=== PATIENT | male | born 1970 | race African-American/Black ===

== ENCOUNTER 2021-01-23 16:34 | Inpatient (IN) | payer MEDICAID ==
[~2021-01-23] VITALS: Ht 177.8 cm; Wt 192.3 kg
[2021-01-23 17:21] LABS: HEMATOCRIT. 35.2 % (42.0-52.0); MEAN CORPUSCULAR HEMOGLOBIN 29.8 pg (28.0-32.0); MEAN CORPUSCULAR VOLUME 87.4 fL (80.0-94.0); MEAN PLATELET VOLUME 8.7 fl (7.4-10.4); PLATELET 242 x1000/uL (130-400); RED BLOOD CELL COUNT 4.02 mill/uL (4.7-6.1); RED CELL DISTRIBUTION WIDTH 16.8 % (11.6-14.6)
[2021-01-23 17:24] LABS: CHLORIDE 110 mEq/L (98-107)
[2021-01-23 17:27] LABS: INR 1.2; PROTHROMBIN TIME 12.5 sec (9.6-11.0)
[2021-01-23 17:28] LABS: ETHANOL BLOOD < 10 mg/dL
[2021-01-23 17:32] LABS: CREATINE KINASE 131 IU/L (39-308)
[2021-01-23] MEDS ORDERED: PIPERACILLIN/TAZ 3.375G PREMIX 50 ML IV ONE (18:15)
[2021-01-23] MEDS ORDERED: PIPERACILLIN/TAZOBACTAM 3.375GM/50ML PREMIX IV ONE (18:15)
[2021-01-23] MEDS ORDERED: VANCOMYCIN 1 G PREMIX 200 ML IV NR (18:45)
[2021-01-23 18:52] LABS: PLATELET ESTIMATE NORMAL
[2021-01-23] MEDS ORDERED: ONDANSETRON HCL 4MG/2ML INJ IV PRN (19:30)
[2021-01-23] MEDS ORDERED: POTASSIUM CHLORIDE 20MEQ TABLET SR PO ONE (20:00)
[2021-01-23] MEDS ORDERED: POTASSIUM CHLORIDE INJ 40 MEQ in DEXT 5% WATER 250 ML IV ONE (21:00)
[2021-01-23] MEDS: SODIUM CHLORIDE 0.9% 1,000 ML IV SCH (23:37)
[2021-01-23] MEDS: ENOXAPARIN 40MG/0.4ML SYR SUBCUT SCH (23:38)
[2021-01-24] MEDS ORDERED: VANCOMYCIN 1 G PREMIX 200 ML IV SCH
[2021-01-24] MEDS ORDERED: DEXTROSE 50% WATER 50ML SYRINGE IV PRN (01:15)
[2021-01-24] MEDS: ACETAMINOPHEN 325MG TABLET PO PRN ×2 (01:56→12:15)
[2021-01-24 02:00] VITALS: BP_SYST 113; BP_SYST 118; BP_DIAS 44; BP_DIAS 66
[2021-01-24] MEDS ORDERED: ONDANSETRON HCL 4MG/2ML INJ IV PRN (02:30)
[2021-01-24 04:00] VITALS: BP 115/59
[2021-01-24] MEDS: SODIUM CHLORIDE 0.9% 1,000 ML IV SCH ×2 (04:50→10:46)
[2021-01-24] MEDS ORDERED: RIVA20TA PO (05:04)
[2021-01-24] MEDS ORDERED: BENA20TA10 PO (05:04)
[2021-01-24] MEDS ORDERED: GABA-532 PO (05:04)
[2021-01-24] MEDS ORDERED: ATOR40TA70 PO (05:04)
[2021-01-24] MEDS ORDERED: ASPI-1160 PO (05:04)
[2021-01-24] MEDS ORDERED: COLL30OI TP (05:04)
[2021-01-24] MEDS ORDERED: METO100T16 PO (05:04)
[2021-01-24] MEDS ORDERED: FURO40TA5 PO (05:04)
[2021-01-24 05:37] VITALS: BP 115/59
[2021-01-24] MEDS: PIPERACILLIN/TAZOBACTAM 3.375 G in DEXTROSE 5% WATER 50 ML IV SCH ×3 (06:29→22:49)
[2021-01-24] MEDS: INSULIN LISPRO 100 UNITS/ML SUBCUT SCH ×4 (06:30→21:27)
[2021-01-24] MEDS: BLOOD SUGAR DIAGNOSTIC STRIP TEST SCH ×4 (06:30→21:23)
[2021-01-24 08:02] LABS: HEMOGLOBIN. 13.7 g/dL (14.0-18.0); MEAN CORPUSCULAR HEMOGLOBIN 29.5 pg (28.0-32.0); MEAN CORPUSCULAR VOLUME 90.2 fL (80.0-94.0); MEAN PLATELET VOLUME 9.6 fl (7.4-10.4); PLATELET 209 x1000/uL (130-400); RED BLOOD CELL COUNT 4.66 mill/uL (4.7-6.1); RED CELL DISTRIBUTION WIDTH 17.3 % (11.6-14.6)
[2021-01-24 08:39] LABS: CHLORIDE 106 mEq/L (98-107)
[2021-01-24 08:51] LABS: PHOSPHORUS 3.2 mg/dL (2.5-4.9)
[2021-01-24] MEDS: ENOXAPARIN 40MG/0.4ML SYR SUBCUT SCH ×2 (09:16→21:29)
[2021-01-24] MEDS ORDERED: VANCOMYCIN 1250MG in DEXTROSE 5% WATER 250ML IV SCH (12:00)
[2021-01-24 13:55] LABS: PLATELET ESTIMATE NORMAL
[2021-01-24] MEDS ORDERED: MAGNESIUM 2 G PREMIX 50 ML IV NR (14:30)
[2021-01-24 14:56] LABS: BG BASE EXCESS -9.7 mmol/L (-2.0-2.0); BG CARBOXYHEMOGLOBIN 0.8 % (0.5-1.5); BG DEOXYHEMOGLOBIN 1.1 % (0.0-5.0); BG FRACTION INSPIRED OXYGEN 30; BG HCO3 ACT 13.9 mmol/L (22.0-26.0); BG METHEMOGLOBIN 0.1 % (0.0-1.5); BG OXYGEN SATURATION 98.9 % (92.0-98.5); BG PCO2 25.3 mmHg (35.0-45.0); BG PH 7.357 (7.350-7.450); BG PO2 152.1 mmHg (75.0-100.0); BG SAMPLE SITE RIGHT RADIAL; BG TOTAL HEMOGLOBIN 14.1 g/dL (12.0-18.0); BG VENT MODE MASK - CPAP
[2021-01-24] MEDS ORDERED: VANCOMYCIN 1500MG in DEXTROSE 5% WATER 250ML IV SCH (18:00)
[2021-01-24 20:00] VITALS: BP 113/56
[2021-01-24] MEDS ORDERED: NALOXONE HCL 0.4MG/ML VIAL IV PRN (20:15)
[2021-01-24] MEDS: HYDROCODONE/ACETAMINOPHEN 5/325MG TABLET PO PRN (20:23)
[2021-01-25] VITALS: BP 112/46
[2021-01-25] MEDS: ACETAMINOPHEN 325MG TABLET PO PRN (00:21)
[2021-01-25 04:00] VITALS: BP 101/42
[2021-01-25] MEDS: HYDROCODONE/ACETAMINOPHEN 5/325MG TABLET PO PRN ×2 (04:27→21:44)
[2021-01-25] MEDS: PIPERACILLIN/TAZOBACTAM 3.375 G in DEXTROSE 5% WATER 50 ML IV SCH ×3 (05:37→21:39)
[2021-01-25] MEDS: BLOOD SUGAR DIAGNOSTIC STRIP TEST SCH ×4 (05:51→21:39)
[2021-01-25 06:13] LABS: CHLORIDE 105 mEq/L (98-107)
[2021-01-25 06:15] LABS: HEMATOCRIT. 36.3 % (42.0-52.0); MEAN CORPUSCULAR HEMOGLOBIN 29.5 pg (28.0-32.0); MEAN CORPUSCULAR VOLUME 89.1 fL (80.0-94.0); MEAN PLATELET VOLUME 9.1 fl (7.4-10.4); PLATELET 194 x1000/uL (130-400); RED BLOOD CELL COUNT 4.08 mill/uL (4.7-6.1); RED CELL DISTRIBUTION WIDTH 16.9 % (11.6-14.6)
[2021-01-25 06:19] LABS: PHOSPHORUS 5.1 mg/dL (2.5-4.9)
[2021-01-25] MEDS: INSULIN LISPRO 100 UNITS/ML SUBCUT SCH ×4 (06:24→21:44)
[2021-01-25] MEDS: ENOXAPARIN 40MG/0.4ML SYR SUBCUT SCH ×2 (10:40→21:43)
[2021-01-25 12:40] LABS: CLARITY URINE TURBID (CLEAR); COLOR URINE DARK YELLOW (YELLOW); KETONES URINE TRACE (NEGATIVE); LEUKOCYTE ESTERASE URINE TRACE (NEGATIVE); NITRITE URINE NEGATIVE (NEGATIVE); OCCULT BLOOD URINE NEGATIVE (NEGATIVE); PROTEIN URINE 1+ (NEGATIVE); SPECIFIC GRAVITY URINE 1.023 (1.005-1.030); UROBILINOGEN URINE 0.2 E.U./dL (0.2-1.0)
[2021-01-25 14:16] LABS: PLATELET ESTIMATE NORMAL
[2021-01-25 20:00] VITALS: BP 111/43
[2021-01-25] MEDS: METRONIDAZOLE 500 MG PREMIX 100 ML IV SCH (21:30)
[2021-01-26] VITALS (7 sets, daily range): BP systolic 91–114; BP diastolic 41–68
[2021-01-26] MEDS: PIPERACILLIN/TAZOBACTAM 3.375 G in DEXTROSE 5% WATER 50 ML IV SCH ×3 (05:12→22:52)
[2021-01-26] MEDS: METRONIDAZOLE 500 MG PREMIX 100 ML IV SCH ×3 (05:12→22:52)
[2021-01-26 05:50] LABS: HEMATOCRIT. 37.5 % (42.0-52.0); HEMOGLOBIN. 12.3 g/dL (14.0-18.0); MEAN CORPUSCULAR HEMOGLOBIN 29.2 pg (28.0-32.0); MEAN CORPUSCULAR VOLUME 89.1 fL (80.0-94.0); MEAN PLATELET VOLUME 9.1 fl (7.4-10.4); PLATELET 164 x1000/uL (130-400); RED BLOOD CELL COUNT 4.21 mill/uL (4.7-6.1); RED CELL DISTRIBUTION WIDTH 17.2 % (11.6-14.6)
[2021-01-26 05:56] LABS: CHLORIDE 102 mEq/L (98-107)
[2021-01-26 06:01] LABS: PHOSPHORUS 5.4 mg/dL (2.5-4.9)
[2021-01-26] MEDS: BLOOD SUGAR DIAGNOSTIC STRIP TEST SCH ×4 (06:28→21:00)
[2021-01-26] MEDS: INSULIN LISPRO 100 UNITS/ML SUBCUT SCH ×4 (06:31→22:51)
[2021-01-26] MEDS: HYDROCODONE/ACETAMINOPHEN 5/325MG TABLET PO PRN ×2 (06:38→22:41)
[2021-01-26] MEDS: ENOXAPARIN 40MG/0.4ML SYR SUBCUT SCH (08:52)
[2021-01-26] MEDS ORDERED: VANCOMYCIN 1 G PREMIX 200 ML IV NR (12:00)
[2021-01-26] MEDS ORDERED: NA PHOS,M-B/NA PHOS,DI-BA ENEMA 118ML PR NR (18:30)
[2021-01-26] MEDS: SODIUM BICARBONATE 150 MEQ in DEXTROSE 5% WATER 1,000 ML IV SCH (18:50)
[2021-01-26] MEDS ORDERED: NA PHOS,M-B/NA PHOS,DI-BA ENEMA 118ML PR SCH (19:00)
[2021-01-26] MEDS: ACETAMINOPHEN 325MG TABLET PO PRN (22:53)
[2021-01-26 23:32] LABS: PLATELET ESTIMATE NORMAL
[2021-01-27] VITALS: BP 96/39
[2021-01-27 04:00] VITALS: BP 99/48
[2021-01-27] MEDS: PIPERACILLIN/TAZOBACTAM 3.375 G in DEXTROSE 5% WATER 50 ML IV SCH ×3 (06:06→22:18)
[2021-01-27] MEDS: METRONIDAZOLE 500 MG PREMIX 100 ML IV SCH ×3 (06:06→22:18)
[2021-01-27] MEDS: BLOOD SUGAR DIAGNOSTIC STRIP TEST SCH ×4 (06:06→21:00)
[2021-01-27] MEDS: INSULIN LISPRO 100 UNITS/ML SUBCUT SCH ×4 (06:08→22:53)
[2021-01-27 08:00] VITALS: BP 110/63
[2021-01-27] MEDS ORDERED: NA PHOS,M-B/NA PHOS,DI-BA ENEMA 118ML PR SCH ×2 (08:00→08:30)
[2021-01-27 08:03] LABS: PROTHROMBIN TIME 10.3 sec (9.6-11.0)
[2021-01-27] MEDS: ENOXAPARIN 40MG/0.4ML SYR SUBCUT SCH (08:16)
[2021-01-27 08:27] LABS: HEMATOCRIT. 34.7 % (42.0-52.0); HEMOGLOBIN. 11.5 g/dL (14.0-18.0); MEAN CORPUSCULAR VOLUME 87.3 fL (80.0-94.0); MEAN PLATELET VOLUME 9.6 fl (7.4-10.4); PLATELET 141 x1000/uL (130-400); RED BLOOD CELL COUNT 3.98 mill/uL (4.7-6.1); RED CELL DISTRIBUTION WIDTH 17.4 % (11.6-14.6)
[2021-01-27 08:28] LABS: CHLORIDE 104 mEq/L (98-107)
[2021-01-27 08:40] LABS: PHOSPHORUS 5.6 mg/dL (2.5-4.9)
[2021-01-27 10:35] LABS: BG BASE EXCESS -8.4 mmol/L (-2.0-2.0); BG CARBOXYHEMOGLOBIN 0.7 % (0.5-1.5); BG DEOXYHEMOGLOBIN 2.9 % (0.0-5.0); BG FRACTION INSPIRED OXYGEN 28; BG HCO3 ACT 16.7 mmol/L (22.0-26.0); BG METHEMOGLOBIN 0.4 % (0.0-1.5); BG OXYGEN SATURATION 97.1 % (92.0-98.5); BG PCO2 33.4 mmHg (35.0-45.0); BG PH 7.316 (7.350-7.450); BG PO2 91.6 mmHg (75.0-100.0); BG SAMPLE SITE RIGHT RADIAL; BG TOTAL HEMOGLOBIN 13.5 g/dL (12.0-18.0); BG VENT MODE NASAL CANNULA
[2021-01-27 12:00] VITALS: BP 114/72
[2021-01-27] MEDS ORDERED: FENTANYL CITRATE/PF 50MCG/ML 2ML VIAL IV PRN (12:08)
[2021-01-27] MEDS ORDERED: MIDAZOLAM HCL 5 MG/5 ML VIAL IV PRN (12:09)
[2021-01-27] MEDS ORDERED: FENTANYL CITRATE/PF 50MCG/ML 2ML VIAL ONE (12:13)
[2021-01-27] MEDS ORDERED: MIDAZOLAM HCL 5 MG/5 ML VIAL ONE (12:13)
[2021-01-27 14:11] LABS: MICROALBUMIN RANDOM URINE 111.9 ug/mL (Not Estab.)
[2021-01-27 14:38] LABS: HEMATOCRIT. 35.9 % (42.0-52.0); MEAN CORPUSCULAR HEMOGLOBIN 29.2 pg (28.0-32.0); MEAN PLATELET VOLUME 9.5 fl (7.4-10.4); PLATELET 141 x1000/uL (130-400); RED BLOOD CELL COUNT 4.13 mill/uL (4.7-6.1); RED CELL DISTRIBUTION WIDTH 17.6 % (11.6-14.6)
[2021-01-27 14:52] LABS: CHLORIDE 104 mEq/L (98-107)
[2021-01-27 16:00] VITALS: BP 112/65
[2021-01-27] MEDS: HYDROCODONE/ACETAMINOPHEN 5/325MG TABLET PO PRN (16:55)
[2021-01-27] MEDS: SODIUM BICARBONATE 150 MEQ in DEXTROSE 5% WATER 1,000 ML IV SCH (17:28)
[2021-01-27 20:00] VITALS: BP 103/58
[2021-01-27] MEDS ORDERED: METOPROLOL TARTRATE 5MG/5ML VIAL IV NR (21:45)
[2021-01-28] VITALS (7 sets, daily range): BP systolic 96–115; BP diastolic 48–59
[2021-01-28 03:35] LABS: PLATELET ESTIMATE NORMAL
[2021-01-28] MEDS: METOPROLOL TARTRATE 50MG TABLET PO SCH ×2 (03:44→20:32)
[2021-01-28 03:49] LABS: PLATELET ESTIMATE NORMAL
[2021-01-28] MEDS: PIPERACILLIN/TAZOBACTAM 3.375 G in DEXTROSE 5% WATER 50 ML IV SCH ×3 (05:29→20:51)
[2021-01-28] MEDS: METRONIDAZOLE 500 MG PREMIX 100 ML IV SCH ×3 (05:29→20:50)
[2021-01-28] MEDS: INSULIN LISPRO 100 UNITS/ML SUBCUT SCH ×4 (06:02→21:18)
[2021-01-28] MEDS: BLOOD SUGAR DIAGNOSTIC STRIP TEST SCH ×4 (06:12→20:51)
[2021-01-28 07:07] LABS: A/G RATIO 0.5 (0.7-1.7); ALBUMIN 2.3 g/dL (2.9-4.4); ALPHA-1-GLOBULIN 0.3 g/dL (0.0-0.4); ALPHA-2-GLOBULIN 0.7 g/dL (0.4-1.0); BETA GLOBULIN 0.7 g/dL (0.7-1.3); GAMMA GLOBULINS 2.4 g/dL (0.4-1.8); GLOBULIN TOTAL 4.2 g/dL (2.2-3.9); M-SPIKE Not Observed g/dL (Not Observed); TOTAL PROTEIN SERUM 6.5 g/dL (6.0-8.5)
[2021-01-28 07:45] LABS: HEMATOCRIT. 34.9 % (42.0-52.0); HEMOGLOBIN. 11.7 g/dL (14.0-18.0); MEAN CORPUSCULAR VOLUME 86.1 fL (80.0-94.0); MEAN PLATELET VOLUME 9.8 fl (7.4-10.4); PLATELET 126 x1000/uL (130-400); RED BLOOD CELL COUNT 4.05 mill/uL (4.7-6.1); RED CELL DISTRIBUTION WIDTH 17.5 % (11.6-14.6)
[2021-01-28 08:01] LABS: CHLORIDE 101 mEq/L (98-107)
[2021-01-28 08:11] LABS: PHOSPHORUS 6.6 mg/dL (2.5-4.9)
[2021-01-28] MEDS: ENOXAPARIN 40MG/0.4ML SYR SUBCUT SCH (08:29)
[2021-01-28] MEDS ORDERED: SODIUM CHLORIDE 0.9% 1,000 ML IV ONE (12:15)
[2021-01-28 12:54] LABS: BG BASE EXCESS -7.7 mmol/L (-2.0-2.0); BG CARBOXYHEMOGLOBIN 0.2 % (0.5-1.5); BG DEOXYHEMOGLOBIN 1.4 % (0.0-5.0); BG FRACTION INSPIRED OXYGEN 32; BG HCO3 ACT 17.5 mmol/L (22.0-26.0); BG METHEMOGLOBIN 0.5 % (0.0-1.5); BG OXYGEN SATURATION 98.6 % (92.0-98.5); BG OXYHEMOGLOBIN 97.9 % (94.0-97.0); BG PH 7.318 (7.350-7.450); BG PO2 136.9 mmHg (75.0-100.0); BG SAMPLE SITE LEFT RADIAL; BG VENT MODE NASAL CANNULA
[2021-01-28 15:43] LABS: PLATELET ESTIMATE DECREASED
[2021-01-28] MEDS: SODIUM BICARBONATE 150 MEQ in DEXTROSE 5% WATER 1,000 ML IV SCH (15:58)
[2021-01-28] MEDS: HYDROCODONE/ACETAMINOPHEN 5/325MG TABLET PO PRN (16:10)
[2021-01-28] MEDS: KCL 20MEQ/100ML PREMIX 100 ML IV SCH ×2 (18:06→18:07)
[2021-01-28] MEDS: DIPHENHYDRAMINE 25MG CAPSULE PO PRN (21:01)
[2021-01-28] MEDS ORDERED: CEFTRIAXONE 1 G PREMIX 50 ML IV SCH (21:15)
[2021-01-28] MEDS ORDERED: CEFTRIAXONE 1,000 MG in DEXTROSE 5% WATER 50 ML IV SCH (22:30)
[2021-01-28] MEDS: ACETAMINOPHEN 325MG TABLET PO PRN (23:18)
[2021-01-28 23:56] LABS: PROTHROMBIN TIME 11.1 sec (9.6-11.0)
[2021-01-29 04:00] VITALS: BP 115/55
[2021-01-29] MEDS: HYDROCODONE/ACETAMINOPHEN 5/325MG TABLET PO PRN (06:15)
[2021-01-29] MEDS: BLOOD SUGAR DIAGNOSTIC STRIP TEST SCH ×4 (06:32→21:00)
[2021-01-29] MEDS: INSULIN LISPRO 100 UNITS/ML SUBCUT SCH ×4 (06:36→22:39)
[2021-01-29 07:11] LABS: HEMATOCRIT. 37.5 % (42.0-52.0); HEMOGLOBIN. 12.6 g/dL (14.0-18.0); MEAN CORPUSCULAR VOLUME 86.5 fL (80.0-94.0); MEAN PLATELET VOLUME 9.8 fl (7.4-10.4); PLATELET 156 x1000/uL (130-400); RED BLOOD CELL COUNT 4.34 mill/uL (4.7-6.1); RED CELL DISTRIBUTION WIDTH 17.9 % (11.6-14.6)
[2021-01-29 07:41] LABS: CHLORIDE 101 mEq/L (98-107)
[2021-01-29 08:00] VITALS: BP 106/58
[2021-01-29] MEDS: ENOXAPARIN 40MG/0.4ML SYR SUBCUT SCH (09:31)
[2021-01-29] MEDS: METOPROLOL TARTRATE 50MG TABLET PO SCH ×2 (09:31→21:00)
[2021-01-29] MEDS: KCL 20MEQ/100ML PREMIX 100 ML IV SCH ×2 (11:57→18:10)
[2021-01-29 12:00] VITALS: BP 104/52
[2021-01-29] MEDS ORDERED: CEFTRIAXONE 2 G PREMIX 50 ML IV SCH (14:30)
[2021-01-29 16:00] VITALS: BP 96/48
[2021-01-29 17:07] LABS: PLATELET ESTIMATE NORMAL
[2021-01-29] MEDS: CEFTRIAXONE 2 G in DEXTROSE 5% WATER 50 ML IV SCH (18:10)
[2021-01-29] MEDS: POTASSIUM CHLORIDE 20MEQ TABLET SR PO SCH ×2 (18:19→22:10)
[2021-01-29] MEDS: SODIUM BICARBONATE 150 MEQ in DEXTROSE 5% WATER 1,000 ML IV SCH (18:23)
[2021-01-29 20:00] VITALS: BP 110/60
[2021-01-29] MEDS: DIPHENHYDRAMINE 25MG CAPSULE PO PRN (22:10)
[2021-01-29] MEDS: ACETAMINOPHEN 325MG TABLET PO PRN (23:32)
[2021-01-30] VITALS: BP 109/58
[2021-01-30] MEDS ORDERED: TRAMADOL 50MG TABLET PO SCH
[2021-01-30] MEDS: SODIUM BICARBONATE 150 MEQ in DEXTROSE 5% WATER 1,000 ML IV SCH ×2 (03:35→13:10)
[2021-01-30 04:00] VITALS: BP 105/50
[2021-01-30] MEDS: INSULIN LISPRO 100 UNITS/ML SUBCUT SCH ×4 (06:06→21:44)
[2021-01-30] MEDS: BLOOD SUGAR DIAGNOSTIC STRIP TEST SCH ×4 (06:07→21:45)
[2021-01-30 06:47] LABS: HEMATOCRIT. 37.9 % (42.0-52.0); HEMOGLOBIN. 12.7 g/dL (14.0-18.0); MEAN CORPUSCULAR HEMOGLOBIN 28.9 pg (28.0-32.0); MEAN CORPUSCULAR VOLUME 86.3 fL (80.0-94.0); MEAN PLATELET VOLUME 9.8 fl (7.4-10.4); PLATELET 183 x1000/uL (130-400)
[2021-01-30 07:04] LABS: PHOSPHORUS 5.9 mg/dL (2.5-4.9)
[2021-01-30 08:00] VITALS: BP 109/56
[2021-01-30] MEDS: METOPROLOL TARTRATE 50MG TABLET PO SCH ×2 (09:00→21:00)
[2021-01-30] MEDS: POTASSIUM CHLORIDE 20MEQ TABLET SR PO SCH ×3 (09:39→17:59)
[2021-01-30] MEDS: ENOXAPARIN 40MG/0.4ML SYR SUBCUT SCH (09:39)
[2021-01-30 12:00] VITALS: BP 96/53
[2021-01-30] MEDS ORDERED: DIGOXIN 500MCG/2ML AMP IV NR (14:45)
[2021-01-30 16:00] VITALS: BP 116/67
[2021-01-30] MEDS: CEFTRIAXONE 2 G in DEXTROSE 5% WATER 50 ML IV SCH (16:36)
[2021-01-30 19:56] LABS: PLATELET ESTIMATE NORMAL
[2021-01-30 20:00] VITALS: BP 110/62
[2021-01-30] MEDS: ACETAMINOPHEN 325MG TABLET PO PRN (21:44)
[2021-01-31] VITALS: BP 115/61
[2021-01-31] MEDS: SODIUM BICARBONATE 150 MEQ in DEXTROSE 5% WATER 1,000 ML IV SCH ×2 (00:30→13:02)
[2021-01-31 04:00] VITALS: BP 117/60
[2021-01-31] MEDS: BLOOD SUGAR DIAGNOSTIC STRIP TEST SCH ×4 (06:43→20:29)
[2021-01-31] MEDS: INSULIN LISPRO 100 UNITS/ML SUBCUT SCH ×4 (06:43→20:29)
[2021-01-31] MEDS: POTASSIUM CHLORIDE 20MEQ TABLET SR PO SCH ×3 (08:30→17:21)
[2021-01-31] MEDS: METOPROLOL TARTRATE 50MG TABLET PO SCH ×2 (08:31→20:29)
[2021-01-31] MEDS: ENOXAPARIN 40MG/0.4ML SYR SUBCUT SCH (08:31)
[2021-01-31] MEDS: ACETAMINOPHEN 325MG TABLET PO PRN ×2 (10:31→20:28)
[2021-01-31 12:00] VITALS: BP 113/72
[2021-01-31 12:10] LABS: HEMATOCRIT. 38.4 % (42.0-52.0); HEMOGLOBIN. 12.8 g/dL (14.0-18.0); MEAN CORPUSCULAR HEMOGLOBIN 28.5 pg (28.0-32.0); MEAN CORPUSCULAR VOLUME 85.5 fL (80.0-94.0); MEAN PLATELET VOLUME 9.3 fl (7.4-10.4); PLATELET 250 x1000/uL (130-400); RED BLOOD CELL COUNT 4.49 mill/uL (4.7-6.1); RED CELL DISTRIBUTION WIDTH 17.8 % (11.6-14.6)
[2021-01-31 12:36] LABS: PHOSPHORUS 5.5 mg/dL (2.5-4.9)
[2021-01-31 14:26] LABS: BG BASE EXCESS -2.9 mmol/L (-2.0-2.0); BG CARBOXYHEMOGLOBIN 0.7 % (0.5-1.5); BG DEOXYHEMOGLOBIN 1.7 % (0.0-5.0); BG FRACTION INSPIRED OXYGEN 28; BG HCO3 ACT 21.3 mmol/L (22.0-26.0); BG METHEMOGLOBIN 0.4 % (0.0-1.5); BG OXYGEN SATURATION 98.3 % (92.0-98.5); BG OXYHEMOGLOBIN 97.2 % (94.0-97.0); BG PCO2 35.3 mmHg (35.0-45.0); BG PH 7.398 (7.350-7.450); BG PO2 121.1 mmHg (75.0-100.0); BG SAMPLE SITE LEFT RADIAL; BG TOTAL HEMOGLOBIN 13.8 g/dL (12.0-18.0); BG VENT MODE NASAL CANNULA
[2021-01-31 16:27] LABS: PLATELET ESTIMATE NORMAL
[2021-01-31 16:30] VITALS: BP 96/50
[2021-01-31] MEDS ORDERED: METOCLOPRAMIDE HCL 5MG TABLET PO SCH ×2 (16:30→22:00)
[2021-01-31] MEDS: CEFTRIAXONE 2 G in DEXTROSE 5% WATER 50 ML IV SCH (16:49)
[2021-01-31] MEDS: DIGOXIN 125MCG TABLET PO SCH (17:21)
[2021-01-31 20:00] VITALS: BP 128/65
[2021-01-31] MEDS: DIPHENHYDRAMINE 25MG CAPSULE PO PRN (20:28)
[2021-02-01] VITALS: BP 101/56
[2021-02-01 04:00] VITALS: BP 131/78
[2021-02-01] MEDS: SODIUM BICARBONATE 150 MEQ in DEXTROSE 5% WATER 1,000 ML IV SCH (06:17)
[2021-02-01] MEDS: INSULIN LISPRO 100 UNITS/ML SUBCUT SCH ×4 (06:29→20:56)
[2021-02-01] MEDS: BLOOD SUGAR DIAGNOSTIC STRIP TEST SCH ×4 (06:49→20:55)
[2021-02-01 08:00] VITALS: BP 137/68
[2021-02-01] MEDS: POTASSIUM CHLORIDE 20MEQ TABLET SR PO SCH ×3 (08:43→17:08)
[2021-02-01 08:47] LABS: HEMATOCRIT. 36.3 % (42.0-52.0); HEMOGLOBIN. 12.1 g/dL (14.0-18.0); MEAN CORPUSCULAR HEMOGLOBIN 28.7 pg (28.0-32.0); MEAN CORPUSCULAR VOLUME 86.4 fL (80.0-94.0); MEAN PLATELET VOLUME 9.4 fl (7.4-10.4); PLATELET 285 x1000/uL (130-400); RED BLOOD CELL COUNT 4.21 mill/uL (4.7-6.1); RED CELL DISTRIBUTION WIDTH 17.4 % (11.6-14.6)
[2021-02-01] MEDS: METOPROLOL TARTRATE 50MG TABLET PO SCH ×2 (08:49→20:55)
[2021-02-01 09:01] LABS: PHOSPHORUS 5.3 mg/dL (2.5-4.9)
[2021-02-01] MEDS: APIXABAN 5 MG TABLET PO SCH ×2 (09:56→17:08)
[2021-02-01 12:00] VITALS: BP 123/63
[2021-02-01 12:33] LABS: PLATELET ESTIMATE NORMAL
[2021-02-01] MEDS: SODIUM HYPOCHLORITE 0.125% 473ML SOLUTION TOP SCH (16:25)
[2021-02-01] MEDS: CEFTRIAXONE 2 G in DEXTROSE 5% WATER 50 ML IV SCH (16:40)
[2021-02-01] MEDS: DIGOXIN 125MCG TABLET PO SCH (17:08)
[2021-02-01 20:00] VITALS: BP 123/54
[2021-02-01] MEDS: ACETAMINOPHEN 325MG TABLET PO PRN (21:19)
[2021-02-01] MEDS: DIPHENHYDRAMINE 25MG CAPSULE PO PRN (21:20)
[2021-02-02] VITALS: BP 109/64
[2021-02-02] MEDS: SODIUM BICARBONATE 150 MEQ in DEXTROSE 5% WATER 1,000 ML IV SCH (01:25)
[2021-02-02 04:00] VITALS: BP 108/72
[2021-02-02] MEDS: BLOOD SUGAR DIAGNOSTIC STRIP TEST SCH ×4 (06:53→20:33)
[2021-02-02] MEDS: INSULIN LISPRO 100 UNITS/ML SUBCUT SCH ×4 (06:54→20:34)
[2021-02-02] MEDS: ACETAMINOPHEN 325MG TABLET PO PRN ×2 (07:02→18:24)
[2021-02-02 08:00] VITALS: BP 143/73
[2021-02-02 08:07] LABS: HEMATOCRIT. 34.5 % (42.0-52.0); HEMOGLOBIN. 11.2 g/dL (14.0-18.0); MEAN CORPUSCULAR HEMOGLOBIN 27.9 pg (28.0-32.0); MEAN CORPUSCULAR VOLUME 86.3 fL (80.0-94.0); MEAN PLATELET VOLUME 9.1 fl (7.4-10.4); PLATELET 299 x1000/uL (130-400); RED BLOOD CELL COUNT 3.99 mill/uL (4.7-6.1); RED CELL DISTRIBUTION WIDTH 17.9 % (11.6-14.6)
[2021-02-02 08:22] LABS: PHOSPHORUS 4.8 mg/dL (2.5-4.9)
[2021-02-02] MEDS: APIXABAN 5 MG TABLET PO SCH ×2 (08:42→18:22)
[2021-02-02] MEDS: METOPROLOL TARTRATE 50MG TABLET PO SCH ×2 (08:43→20:33)
[2021-02-02] MEDS: POTASSIUM CHLORIDE 20MEQ TABLET SR PO SCH ×3 (08:43→18:21)
[2021-02-02] MEDS: SODIUM HYPOCHLORITE 0.125% 473ML SOLUTION TOP SCH (08:44)
[2021-02-02 10:40] LABS: PLATELET ESTIMATE NORMAL
[2021-02-02 12:00] VITALS: BP 124/75
[2021-02-02] MEDS ORDERED: TRAMADOL 50MG TABLET PO NR (12:15)
[2021-02-02 16:00] VITALS: BP 115/65
[2021-02-02] MEDS: DIGOXIN 125MCG TABLET PO SCH (18:21)
[2021-02-02] MEDS: CEFTRIAXONE 2 G in DEXTROSE 5% WATER 50 ML IV SCH (18:25)
[2021-02-02 20:00] VITALS: BP 121/60
[2021-02-02] MEDS: SENNOSIDES/DOCUSATE SOD 8.6/50MG TABLET PO SCH (20:33)
[2021-02-02] MEDS: DIPHENHYDRAMINE 25MG CAPSULE PO PRN (20:39)
[2021-02-03] VITALS: BP 130/67
[2021-02-03 04:00] VITALS: BP 126/72
[2021-02-03 05:26] LABS: PHOSPHORUS 5.5 mg/dL (2.5-4.9)
[2021-02-03 05:48] LABS: DIGOXIN 0.8 ng/mL (0.9-2.0)
[2021-02-03] MEDS: BLOOD SUGAR DIAGNOSTIC STRIP TEST SCH ×4 (06:15→20:19)
[2021-02-03] MEDS: INSULIN LISPRO 100 UNITS/ML SUBCUT SCH ×4 (06:26→21:15)
[2021-02-03 06:30] LABS: HEMATOCRIT. 34.9 % (42.0-52.0); HEMOGLOBIN. 11.9 g/dL (14.0-18.0); MEAN CORPUSCULAR HEMOGLOBIN 29.2 pg (28.0-32.0); MEAN CORPUSCULAR VOLUME 85.6 fL (80.0-94.0); MEAN PLATELET VOLUME 9.3 fl (7.4-10.4); PLATELET 339 x1000/uL (130-400); RED BLOOD CELL COUNT 4.07 mill/uL (4.7-6.1); RED CELL DISTRIBUTION WIDTH 17.7 % (11.6-14.6)
[2021-02-03 08:00] VITALS: BP 127/76
[2021-02-03] MEDS: POLYETHYLENE GLYCOL 3350 (17GM) 1 DOSE PACK PO SCH (08:54)
[2021-02-03] MEDS: APIXABAN 5 MG TABLET PO SCH ×2 (08:54→17:08)
[2021-02-03] MEDS: POTASSIUM CHLORIDE 20MEQ TABLET SR PO SCH ×3 (08:54→17:08)
[2021-02-03] MEDS: DOCUSATE SODIUM 100MG CAPSULE PO SCH ×2 (08:54→17:09)
[2021-02-03] MEDS: METOPROLOL TARTRATE 50MG TABLET PO SCH ×2 (08:54→21:13)
[2021-02-03] MEDS: SODIUM HYPOCHLORITE 0.125% 473ML SOLUTION TOP SCH (08:55)
[2021-02-03 11:28] LABS: PLATELET ESTIMATE NORMAL
[2021-02-03 12:00] VITALS: BP 108/64
[2021-02-03] MEDS: CEFTRIAXONE 2 G in DEXTROSE 5% WATER 50 ML IV SCH (15:51)
[2021-02-03 16:00] VITALS: BP 150/64
[2021-02-03] MEDS: DIGOXIN 125MCG TABLET PO SCH (17:09)
[2021-02-03 20:00] VITALS: BP 130/72
[2021-02-03] MEDS: SENNOSIDES/DOCUSATE SOD 8.6/50MG TABLET PO SCH (21:12)
[2021-02-03] MEDS: DIPHENHYDRAMINE 25MG CAPSULE PO PRN (21:13)
[2021-02-03] MEDS: ACETAMINOPHEN 325MG TABLET PO PRN (21:13)
[2021-02-03] MEDS: INSULIN GLARGINE UD 100 UNITS/ML SYR SUBCUT SCH (21:16)
[2021-02-04] VITALS: BP 125/65
[2021-02-04 04:00] VITALS: BP 150/74
[2021-02-04] MEDS: BLOOD SUGAR DIAGNOSTIC STRIP TEST SCH ×4 (06:26→21:20)
[2021-02-04] MEDS: ACETAMINOPHEN 325MG TABLET PO PRN (06:30)
[2021-02-04] MEDS: INSULIN LISPRO 100 UNITS/ML SUBCUT SCH ×4 (06:31→21:20)
[2021-02-04 07:40] LABS: BASOPHILS % 0.3 % (0.0-2.0); EOSINOPHILS % 0.8 % (0.0-5.0); HEMATOCRIT. 34.8 % (42.0-52.0); HEMOGLOBIN. 11.8 g/dL (14.0-18.0); LYMPHOCYTES % 9.5 % (20.0-50.0); MEAN CORPUSCULAR VOLUME 85.9 fL (80.0-94.0); MEAN PLATELET VOLUME 8.8 fl (7.4-10.4); NEUTROPHILS % 81.4 % (40.0-76.0); PLATELET 377 x1000/uL (130-400); RED BLOOD CELL COUNT 4.06 mill/uL (4.7-6.1); RED CELL DISTRIBUTION WIDTH 17.1 % (11.6-14.6)
[2021-02-04 08:00] VITALS: BP 146/61
[2021-02-04] MEDS: POLYETHYLENE GLYCOL 3350 (17GM) 1 DOSE PACK PO SCH (08:12)
[2021-02-04 08:20] LABS: PHOSPHORUS 5.4 mg/dL (2.5-4.9)
[2021-02-04] MEDS: POTASSIUM CHLORIDE 20MEQ TABLET SR PO SCH ×2 (08:33→17:07)
[2021-02-04] MEDS: METOPROLOL TARTRATE 50MG TABLET PO SCH ×2 (08:33→21:19)
[2021-02-04] MEDS: APIXABAN 5 MG TABLET PO SCH ×2 (08:33→17:07)
[2021-02-04] MEDS: DOCUSATE SODIUM 100MG CAPSULE PO SCH ×2 (08:33→17:07)
[2021-02-04] MEDS: SODIUM HYPOCHLORITE 0.125% 473ML SOLUTION TOP SCH (08:34)
[2021-02-04 12:00] VITALS: BP 148/67
[2021-02-04 16:00] VITALS: BP 126/61
[2021-02-04] MEDS: CEFTRIAXONE 2 G in DEXTROSE 5% WATER 50 ML IV SCH (17:06)
[2021-02-04] MEDS: DIGOXIN 125MCG TABLET PO SCH (17:09)
[2021-02-04 20:00] VITALS: BP 134/66
[2021-02-04] MEDS: SENNOSIDES/DOCUSATE SOD 8.6/50MG TABLET PO SCH (21:18)
[2021-02-04] MEDS: DIPHENHYDRAMINE 25MG CAPSULE PO PRN (21:19)
[2021-02-04] MEDS: INSULIN GLARGINE UD 100 UNITS/ML SYR SUBCUT SCH (21:20)
[2021-02-05] VITALS: BP 147/64
[2021-02-05] MEDS: ACETAMINOPHEN 325MG TABLET PO PRN ×2 (00:40→17:33)
[2021-02-05 04:00] VITALS: BP 127/66
[2021-02-05] MEDS: INSULIN LISPRO 100 UNITS/ML SUBCUT SCH ×4 (06:39→21:42)
[2021-02-05] MEDS: BLOOD SUGAR DIAGNOSTIC STRIP TEST SCH ×4 (06:39→21:00)
[2021-02-05 07:45] LABS: BASOPHILS % 0.2 % (0.0-2.0); EOSINOPHILS % 0.8 % (0.0-5.0); HEMOGLOBIN. 10.1 g/dL (14.0-18.0); MEAN CORPUSCULAR HEMOGLOBIN 28.9 pg (28.0-32.0); MEAN PLATELET VOLUME 8.8 fl (7.4-10.4); MONOCYTES % 7.9 % (2.0-8.0); NEUTROPHILS % 80.1 % (40.0-76.0); PLATELET 298 x1000/uL (130-400); RED BLOOD CELL COUNT 3.49 mill/uL (4.7-6.1); RED CELL DISTRIBUTION WIDTH 17.6 % (11.6-14.6)
[2021-02-05 08:00] VITALS: BP 152/72
[2021-02-05 08:07] LABS: PHOSPHORUS 4.9 mg/dL (2.5-4.9)
[2021-02-05] MEDS: SODIUM HYPOCHLORITE 0.125% 473ML SOLUTION TOP SCH (08:33)
[2021-02-05] MEDS: POTASSIUM CHLORIDE 20MEQ TABLET SR PO SCH ×2 (08:33→17:22)
[2021-02-05] MEDS: DOCUSATE SODIUM 100MG CAPSULE PO SCH ×2 (08:33→17:00)
[2021-02-05] MEDS: APIXABAN 5 MG TABLET PO SCH ×2 (08:33→17:22)
[2021-02-05] MEDS: METOPROLOL TARTRATE 50MG TABLET PO SCH ×2 (08:33→20:59)
[2021-02-05] MEDS: POLYETHYLENE GLYCOL 3350 (17GM) 1 DOSE PACK PO SCH (08:34)
[2021-02-05 12:00] VITALS: BP 143/67
[2021-02-05 16:00] VITALS: BP 155/74
[2021-02-05] MEDS: DIGOXIN 125MCG TABLET PO SCH (17:22)
[2021-02-05] MEDS: CEFTRIAXONE 2 G in DEXTROSE 5% WATER 50 ML IV SCH (17:22)
[2021-02-05] MEDS ORDERED: COLL30OI TP (18:37)
[2021-02-05] MEDS ORDERED: INSLIS SUBCUT (18:37)
[2021-02-05] MEDS ORDERED: METO100T16 PO (18:37)
[2021-02-05] MEDS ORDERED: BENA20TA10 PO (18:37)
[2021-02-05] MEDS ORDERED: METF-416 PO (18:37)
[2021-02-05] MEDS ORDERED: INSU100I28 SQ (18:37)
[2021-02-05] MEDS ORDERED: SEMA0.25 SQ (18:37)
[2021-02-05 20:00] VITALS: BP 138/66
[2021-02-05] MEDS: SENNOSIDES/DOCUSATE SOD 8.6/50MG TABLET PO SCH (21:00)
[2021-02-05] MEDS: DIPHENHYDRAMINE 25MG CAPSULE PO PRN (21:38)
[2021-02-05] MEDS: INSULIN GLARGINE UD 100 UNITS/ML SYR SUBCUT SCH (21:43)
[2021-02-06] VITALS (8 sets, daily range): BP systolic 126–166; BP diastolic 68–85
[2021-02-06] MEDS: INSULIN LISPRO 100 UNITS/ML SUBCUT SCH ×4 (06:01→22:40)
[2021-02-06] MEDS: BLOOD SUGAR DIAGNOSTIC STRIP TEST SCH ×4 (06:01→21:00)
[2021-02-06 06:30] LABS: PHOSPHORUS 4.8 mg/dL (2.5-4.9)
[2021-02-06 06:42] LABS: BASOPHILS % 0.7 % (0.0-2.0); EOSINOPHILS % 0.8 % (0.0-5.0); HEMATOCRIT. 34.6 % (42.0-52.0); HEMOGLOBIN. 11.6 g/dL (14.0-18.0); LYMPHOCYTES % 12.9 % (20.0-50.0); MEAN CORPUSCULAR HEMOGLOBIN 29.1 pg (28.0-32.0); MEAN CORPUSCULAR VOLUME 87.2 fL (80.0-94.0); MEAN PLATELET VOLUME 9.4 fl (7.4-10.4); MONOCYTES % 9.7 % (2.0-8.0); NEUTROPHILS % 75.9 % (40.0-76.0); PLATELET 364 x1000/uL (130-400); RED BLOOD CELL COUNT 3.97 mill/uL (4.7-6.1); RED CELL DISTRIBUTION WIDTH 17.1 % (11.6-14.6)
[2021-02-06] MEDS ORDERED: SENN1TAB35 PO (08:15)
[2021-02-06] MEDS ORDERED: APIX5TAB PO (08:15)
[2021-02-06] MEDS ORDERED: LINA145C PO (08:15)
[2021-02-06] MEDS ORDERED: METF-414 MT (08:15)
[2021-02-06] MEDS ORDERED: INSLIS SUBCUT (08:15)
[2021-02-06] MEDS ORDERED: TOPUD PO (08:15)
[2021-02-06] MEDS ORDERED: METO-539 PO (08:15)
[2021-02-06] MEDS ORDERED: POLY17PO3 PO (08:15)
[2021-02-06] MEDS ORDERED: DOCU-150 PO (08:15)
[2021-02-06] MEDS ORDERED: DIGO-26 PO (08:15)
[2021-02-06] MEDS ORDERED: INSU100I28 SQ (08:15)
[2021-02-06] MEDS ORDERED: FURO40TA5 PO (08:15)
[2021-02-06] MEDS: POTASSIUM CHLORIDE 20MEQ TABLET SR PO SCH ×2 (08:20→16:41)
[2021-02-06] MEDS: DOCUSATE SODIUM 100MG CAPSULE PO SCH ×2 (08:20→16:41)
[2021-02-06] MEDS: APIXABAN 5 MG TABLET PO SCH ×2 (08:20→16:42)
[2021-02-06] MEDS: POLYETHYLENE GLYCOL 3350 (17GM) 1 DOSE PACK PO SCH (08:20)
[2021-02-06] MEDS: SODIUM HYPOCHLORITE 0.125% 473ML SOLUTION TOP SCH (08:21)
[2021-02-06] MEDS: METOPROLOL TARTRATE 50MG TABLET PO SCH ×2 (08:21→22:38)
[2021-02-06] MEDS ORDERED: MAGNESIUM 2 G PREMIX 50 ML IV ONE (09:30)
[2021-02-06] MEDS ORDERED: MAGNESIUM OXIDE 400MG TABLET PO NR (09:45)
[2021-02-06] MEDS ORDERED: DILT180C66 PO (09:49)
[2021-02-06] MEDS ORDERED: INSU100I24 SQ (10:05)
[2021-02-06] MEDS ORDERED: INSU100I38 SQ (10:05)
[2021-02-06] MEDS: DILTIAZEM HCL 180MG CAPSULE CD 24HR PO SCH (12:28)
[2021-02-06] MEDS: DIPHENHYDRAMINE 25MG CAPSULE PO PRN (12:39)
[2021-02-06] MEDS: SENNOSIDES/DOCUSATE SOD 8.6/50MG TABLET PO SCH (22:38)
[2021-02-06] MEDS: INSULIN GLARGINE UD 100 UNITS/ML SYR SUBCUT SCH (22:41)
[2021-02-07] MEDS: BLOOD SUGAR DIAGNOSTIC STRIP TEST SCH ×2 (06:14→11:36)
[2021-02-07] MEDS: INSULIN LISPRO 100 UNITS/ML SUBCUT SCH ×2 (06:14→11:36)
[2021-02-07 08:00] VITALS: BP 125/86
[2021-02-07] MEDS: POTASSIUM CHLORIDE 20MEQ TABLET SR PO SCH (08:27)
[2021-02-07] MEDS: METOPROLOL TARTRATE 50MG TABLET PO SCH (08:27)
[2021-02-07] MEDS: APIXABAN 5 MG TABLET PO SCH (08:27)
[2021-02-07] MEDS: DOCUSATE SODIUM 100MG CAPSULE PO SCH ×2 (08:27→08:34)
[2021-02-07] MEDS: POLYETHYLENE GLYCOL 3350 (17GM) 1 DOSE PACK PO SCH (08:28)
[2021-02-07] MEDS: SODIUM HYPOCHLORITE 0.125% 473ML SOLUTION TOP SCH (08:28)
[2021-02-07] MEDS: DILTIAZEM HCL 180MG CAPSULE CD 24HR PO SCH (08:28)
[2021-02-07 09:09] LABS: BASOPHILS % 0.5 % (0.0-2.0); EOSINOPHILS % 1.2 % (0.0-5.0); HEMATOCRIT. 33.2 % (42.0-52.0); HEMOGLOBIN. 11.4 g/dL (14.0-18.0); LYMPHOCYTES % 13.3 % (20.0-50.0); MEAN CORPUSCULAR HEMOGLOBIN 29.3 pg (28.0-32.0); MEAN CORPUSCULAR VOLUME 85.2 fL (80.0-94.0); MONOCYTES % 9.6 % (2.0-8.0); NEUTROPHILS % 75.4 % (40.0-76.0); PLATELET 395 x1000/uL (130-400)
[2021-02-07 09:19] LABS: PHOSPHORUS 3.3 mg/dL (2.5-4.9)
[2021-02-07] MEDS ORDERED: MAGNESIUM 2 G PREMIX 50 ML IV SCH (10:00)
[2021-02-07 12:00] VITALS: BP 160/75
[2021-02-07 13:55] VITALS: BP 155/72
== END 2021-02-07 16:55 | DRG 720 ==
LOC: ER 16:34 → EDBEDREQTM 18:26 → EDBEDREQSVC 18:26 → EDBEDREQ 18:26 → EDBEDREQTM 19:07 → SUPCPDRO 19:14 → MICUSO 20:23 → 7EST 01-24 00:22
PROVIDERS: ADMIT Internal Medicine; ATTEND Internal Medicine
PROC: 5A09357 Assistance with Respiratory Ventilation, Less than 24 Consecutive Hours, Continuous Positive Airway Pressure (ICD-10-PCS; 2021-01-23)
PROC: 5A09457 Assistance with Respiratory Ventilation, 24-96 Consecutive Hours, Continuous Positive Airway Pressure (ICD-10-PCS; 2021-01-25)
PROC: 05H533Z Insertion of Infusion Device into Right Subclavian Vein, Percutaneous Approach (ICD-10-PCS; 2021-01-26)
PROC: B546ZZA Ultrasonography of Right Subclavian Vein, Guidance (ICD-10-PCS; 2021-01-26)
PROC: 0DJD8ZZ Inspection of Lower Intestinal Tract, Via Natural or Artificial Opening Endoscopic (ICD-10-PCS; principal; 2021-01-27)
PROC: 5A09357 Assistance with Respiratory Ventilation, Less than 24 Consecutive Hours, Continuous Positive Airway Pressure (ICD-10-PCS; 2021-01-27)
PROC: 5A09357 Assistance with Respiratory Ventilation, Less than 24 Consecutive Hours, Continuous Positive Airway Pressure (ICD-10-PCS; 2021-01-30)
PROC: 5A09557 Assistance with Respiratory Ventilation, Greater than 96 Consecutive Hours, Continuous Positive Airway Pressure (ICD-10-PCS; 2021-01-31)
PROC: 5A09357 Assistance with Respiratory Ventilation, Less than 24 Consecutive Hours, Continuous Positive Airway Pressure (ICD-10-PCS; 2021-02-05)
PROC: 5A09357 Assistance with Respiratory Ventilation, Less than 24 Consecutive Hours, Continuous Positive Airway Pressure (ICD-10-PCS; 2021-02-06)
DX: A40.0 Sepsis due to streptococcus, group A (principal); N17.0 Acute kidney failure with tubular necrosis; R65.20 Severe sepsis without septic shock; E43 Unspecified severe protein-calorie malnutrition; K59.31 Toxic megacolon; I13.0 Hypertensive heart and chronic kidney disease with heart failure and stage 1 through stage 4 chronic kidney disease, or unspecified chronic kidney disease; E87.2 Acidosis; I42.9 Cardiomyopathy, unspecified; E87.1 Hypo-osmolality and hyponatremia; E83.39 Other disorders of phosphorus metabolism; I95.9 Hypotension, unspecified; I50.20 Unspecified systolic (congestive) heart failure; D64.9 Anemia, unspecified; E11.65 Type 2 diabetes mellitus with hyperglycemia; E66.01 Morbid (severe) obesity due to excess calories; E78.5 Hyperlipidemia, unspecified; E83.42 Hypomagnesemia; E87.6 Hypokalemia; G47.33 Obstructive sleep apnea (adult) (pediatric); I89.0 Lymphedema, not elsewhere classified; K80.20 Calculus of gallbladder without cholecystitis without obstruction; E11.51 Type 2 diabetes mellitus with diabetic peripheral angiopathy without gangrene; K64.8 Other hemorrhoids; L03.116 Cellulitis of left lower limb; L03.115 Cellulitis of right lower limb; K59.89 Other specified functional intestinal disorders; K59.00 Constipation, unspecified; Z20.822 Contact with and (suspected) exposure to COVID-19; L97.929 Non-pressure chronic ulcer of unspecified part of left lower leg with unspecified severity; L97.919 Non-pressure chronic ulcer of unspecified part of right lower leg with unspecified severity; E11.622 Type 2 diabetes mellitus with other skin ulcer; E87.8 Other disorders of electrolyte and fluid balance, not elsewhere classified; E11.22 Type 2 diabetes mellitus with diabetic chronic kidney disease; N18.9 Chronic kidney disease, unspecified; I48.20 Chronic atrial fibrillation, unspecified; Z88.8 Allergy status to other drugs, medicaments and biological substances; Z87.39 Personal history of other diseases of the musculoskeletal system and connective tissue; Z83.3 Family history of diabetes mellitus; Z82.49 Family history of ischemic heart disease and other diseases of the circulatory system; Z79.01 Long term (current) use of anticoagulants; Z56.0 Unemployment, unspecified; Z79.82 Long term (current) use of aspirin; Z79.899 Other long term (current) drug therapy; Z68.44 Body mass index [BMI] 60.0-69.9, adult
CPT/HCPCS: 36415; 36600; 71045; 73700; 74018; 74176; 76937; 80048; 80053; 80162; 80202; 80320; 81003; 82043; 82375; 82550; 82570; 82728; 82805; 82962; 83036; 83605; 83735; 83880; 83935; 84100; 84145; 84155; 84165; 84300; 84443; 84484; 85025; 86140; 86850; 86900; 87015; 87045; 87077; 87186; 87426; 87427; 87449; 87493; 89055; 92950; 93005; 93306; 93970; 94640; 94660; 97162; 97166; 97530; 99291; C1725; C1758; C1769; C1893; J0696; J1160; J1650; J1815; J2250; J2405; J2543; J3010; J3370; J3475; J3480; J3490; J7040; J7060; J7070; Q0163; G0480

== ENCOUNTER 2021-04-04 21:11 | Inpatient (IN) | payer MEDICAID ==
[~2021-04-04] VITALS: Ht 170.2 cm; Wt 177.4 kg
[~2021-04-04 21:11] MED LIST: APIX5TAB PO; ATOR40TA70 PO; BENA20TA10 PO; COLL30OI TP; DILT180C66 PO; DOCU-150 PO; GABA-532 PO; INSU100I24 SQ; INSU100I38 SQ; LINA145C PO; METF-414 MT; METO-539 PO; POLY17PO3 PO; SEMA0.25 SQ; SENN1TAB35 PO; TOPUD PO
[2021-04-04] MEDS ORDERED: NITROGLYCERIN 0.4MG TABLET SL SL PRN (21:45)
[2021-04-04] MEDS ORDERED: ASPIRIN 81MG TABLET PO ONE (21:45)
[2021-04-04] MEDS ORDERED: FUROSEMIDE 40MG/4ML VIAL IVP ONE (23:00)
[2021-04-04 23:33] LABS: BASOPHILS % 0.8 % (0.0-2.0); EOSINOPHILS % 1.9 % (0.0-5.0); HEMATOCRIT. 33.1 % (42.0-52.0); HEMOGLOBIN. 10.7 g/dL (14.0-18.0); LYMPHOCYTES % 24.5 % (20.0-50.0); MEAN CORPUSCULAR HEMOGLOBIN 28.5 pg (28.0-32.0); MEAN CORPUSCULAR VOLUME 87.8 fL (80.0-94.0); MEAN PLATELET VOLUME 8.5 fl (7.4-10.4); MONOCYTES % 9.6 % (2.0-8.0); NEUTROPHILS % 63.2 % (40.0-76.0); PLATELET 347 x1000/uL (130-400); RED BLOOD CELL COUNT 3.77 mill/uL (4.7-6.1); RED CELL DISTRIBUTION WIDTH 16.8 % (11.6-14.6)
[2021-04-04 23:50] LABS: CHLORIDE 103 mEq/L (98-107)
[2021-04-05 02:20] LABS: INR 1.1; PARTIAL THROMBOPLASTIN TIME 28.5 sec (23.4-31.0); PROTHROMBIN TIME 11.3 sec (9.6-11.0)
[2021-04-05] MEDS ORDERED: ACETAMINOPHEN 325MG TABLET PO PRN (04:30)
[2021-04-05] MEDS ORDERED: CLONIDINE 0.1MG TABLET PO PRN (04:30)
[2021-04-05] MEDS ORDERED: ONDANSETRON HCL 4MG/2ML INJ IV PRN (04:30)
[2021-04-05] MEDS ORDERED: DOCUSATE SODIUM 100MG CAPSULE PO PRN (04:30)
[2021-04-05] MEDS ORDERED: MAGNESIUM/ALUMINUM HYDROXIDE/SIMETHICONE 30ML UDC PO PRN (04:30)
[2021-04-05] MEDS ORDERED: NALOXONE HCL 0.4 MG/ML 1ML VIAL IV PRN (04:45)
[2021-04-05] MEDS: FUROSEMIDE 40MG/4ML VIAL IV SCH ×2 (05:13→11:06)
[2021-04-05] MEDS: HYDROCODONE/ACETAMINOPHEN 5/325MG TABLET PO PRN ×2 (05:42→17:59)
[2021-04-05] MEDS ORDERED: AMLODIPINE 10MG TABLET PO SCH (09:00)
[2021-04-05] MEDS ORDERED: DEXTROSE 50% WATER 50ML SYRINGE IV PRN (09:15)
[2021-04-05] MEDS: APIXABAN 5 MG TABLET PO SCH ×2 (11:06→17:31)
[2021-04-05 12:00] VITALS: BP 157/91
[2021-04-05] MEDS: BLOOD SUGAR DIAGNOSTIC STRIP TEST SCH ×3 (12:23→20:49)
[2021-04-05] MEDS: INSULIN LISPRO 100 UNITS/ML SUBCUT SCH ×3 (12:39→21:30)
[2021-04-05] MEDS ORDERED: APIXABAN 5 MG TABLET PO SCH (13:15)
[2021-04-05] MEDS ORDERED: FURO40TA5 PO (13:34)
[2021-04-05] MEDS ORDERED: PNEUMOCOCCAL 23-VAL P-SAC VAC 0.5 ML IM ONE (14:00)
[2021-04-05 15:56] LABS: CREATINE KINASE 115 IU/L (39-308)
[2021-04-05 16:00] VITALS: BP 144/69
[2021-04-05] MEDS: DILTIAZEM HCL 180MG CAPSULE CD 24HR PO SCH (17:31)
[2021-04-05] MEDS: DOCUSATE SODIUM 100MG CAPSULE PO SCH (17:31)
[2021-04-05] MEDS: GABAPENTIN 300MG CAPSULE PO SCH (17:31)
[2021-04-05] MEDS: METFORMIN HCL 500MG TABLET PO SCH (17:32)
[2021-04-05 17:58] VITALS: BP 144/69
[2021-04-05 20:00] VITALS: BP 133/66
[2021-04-05] MEDS ORDERED: ATORVASTATIN CALCIUM 40MG TABLET PO SCH (21:00)
[2021-04-05] MEDS: METOPROLOL TARTRATE 50MG TABLET PO SCH (21:31)
[2021-04-05] MEDS ORDERED: INSULIN GLARGINE UD 100 UNITS/ML SYR SUBCUT SCH (22:00)
[2021-04-06 02:38] VITALS: BP 130/68
[2021-04-06 04:00] VITALS: BP 113/72
[2021-04-06] MEDS: BLOOD SUGAR DIAGNOSTIC STRIP TEST SCH ×2 (05:58→11:40)
[2021-04-06] MEDS: INSULIN LISPRO 100 UNITS/ML SUBCUT SCH ×2 (05:58→12:13)
[2021-04-06] MEDS: HYDROCODONE/ACETAMINOPHEN 5/325MG TABLET PO PRN (06:00)
[2021-04-06 07:28] LABS: BASOPHILS % 0.4 % (0.0-2.0); EOSINOPHILS % 2.5 % (0.0-5.0); HEMATOCRIT. 33.2 % (42.0-52.0); HEMOGLOBIN. 11.3 g/dL (14.0-18.0); LYMPHOCYTES % 30.9 % (20.0-50.0); MEAN CORPUSCULAR HEMOGLOBIN 29.9 pg (28.0-32.0); MEAN CORPUSCULAR VOLUME 87.8 fL (80.0-94.0); MEAN PLATELET VOLUME 8.8 fl (7.4-10.4); MONOCYTES % 12.2 % (2.0-8.0); PLATELET 365 x1000/uL (130-400); RED BLOOD CELL COUNT 3.78 mill/uL (4.7-6.1); RED CELL DISTRIBUTION WIDTH 16.9 % (11.6-14.6)
[2021-04-06 07:35] LABS: CHLORIDE 100 mEq/L (98-107)
[2021-04-06 07:44] LABS: LDL CHOLESTEROL 70 mg/dL (5-100)
[2021-04-06 07:47] LABS: HDL CHOLESTEROL 67 mg/dL (40-59)
[2021-04-06 08:00] VITALS: BP 135/62
[2021-04-06] MEDS: APIXABAN 5 MG TABLET PO SCH (09:16)
[2021-04-06] MEDS: FUROSEMIDE 40MG/4ML VIAL IV SCH (09:16)
[2021-04-06] MEDS: DOCUSATE SODIUM 100MG CAPSULE PO SCH (09:16)
[2021-04-06] MEDS: METOPROLOL TARTRATE 50MG TABLET PO SCH (09:16)
[2021-04-06] MEDS: GABAPENTIN 300MG CAPSULE PO SCH (09:16)
[2021-04-06] MEDS: DILTIAZEM HCL 180MG CAPSULE CD 24HR PO SCH (09:16)
[2021-04-06] MEDS: METFORMIN HCL 500MG TABLET PO SCH (09:17)
[2021-04-06 11:20] VITALS: BP 135/62
[2021-04-06] MEDS ORDERED: POTASSIUM CHLORIDE 20MEQ TABLET SR PO NR (11:30)
[2021-04-06 12:00] VITALS: BP 106/67
== END 2021-04-06 15:15 | disposition home or self-care (01) | DRG 201 ==
LOC: ER 21:11 → MICUSO 04-05 01:35 → 7EST 04-05 12:25
PROVIDERS: ADMIT Hospitalist; ATTEND Hospitalist
DX: I48.0 Paroxysmal atrial fibrillation (principal); E11.40 Type 2 diabetes mellitus with diabetic neuropathy, unspecified; I50.9 Heart failure, unspecified; Z68.44 Body mass index [BMI] 60.0-69.9, adult; I11.0 Hypertensive heart disease with heart failure; I89.0 Lymphedema, not elsewhere classified; E66.01 Morbid (severe) obesity due to excess calories; E78.5 Hyperlipidemia, unspecified; G47.33 Obstructive sleep apnea (adult) (pediatric); I25.10 Atherosclerotic heart disease of native coronary artery without angina pectoris; Z20.822 Contact with and (suspected) exposure to COVID-19; Z79.01 Long term (current) use of anticoagulants; Z88.8 Allergy status to other drugs, medicaments and biological substances; Z28.21 Immunization not carried out because of patient refusal
CPT/HCPCS: 36415; 71045; 80053; 80061; 82550; 82962; 83036; 83880; 84484; 85025; 87426; 90732; 93005; 93970; 99285; J1815; J1940

== ENCOUNTER 2021-08-22 09:31 | Inpatient (IN) | payer MEDICAID ==
[~2021-08-22] VITALS: Ht 172.7 cm; Wt 187.3 kg
[~2021-08-22 09:31] MED LIST changes: +FURO40TA5 PO
[2021-08-22 11:12] LABS: HEMOGLOBIN. 11.4 g/dL (14.0-18.0); MEAN CORPUSCULAR HEMOGLOBIN 28.9 pg (28.0-32.0); MEAN CORPUSCULAR VOLUME 86.1 fL (80.0-94.0); MEAN PLATELET VOLUME 8.1 fl (7.4-10.4); PLATELET 520 x1000/uL (130-400); RED BLOOD CELL COUNT 3.95 mill/uL (4.7-6.1); RED CELL DISTRIBUTION WIDTH 14.2 % (11.6-14.6)
[2021-08-22 11:17] LABS: CHLORIDE 99 mEq/L (98-107)
[2021-08-22 11:44] LABS: PLATELET ESTIMATE INCREASED
[2021-08-22] MEDS ORDERED: IOHEXOL-300 100 ML BOTTLE ONE (12:03)
[2021-08-22] MEDS ORDERED: PIPERACILLIN/TAZ 3.375G PREMIX 50 ML IV NR (12:45)
[2021-08-22] MEDS ORDERED: VANCOMYCIN 1G PREMIX 200 ML IV NR (12:45)
[2021-08-22] MEDS ORDERED: SODIUM CHLORIDE 0.9% 1000ML BAG (SEPSIS BOLUS) IV ONE (12:45)
[2021-08-22] MEDS ORDERED: SODIUM CHLORIDE 0.9% 3,000 ML IV SCH (12:45)
[2021-08-22] MEDS ORDERED: MORPHINE SULFATE 4 MG/ML CPJ (NOT FOR IM USE) IV ONE (18:15)
[2021-08-22 19:30] VITALS: BP 162/84
[2021-08-22] MEDS ORDERED: DEXTROSE 50% WATER 50ML SYRINGE IV PRN (20:00)
[2021-08-22 20:24] VITALS: BP 162/77
[2021-08-22] MEDS: ACETAMINOPHEN 325MG TABLET PO PRN (20:55)
[2021-08-22] MEDS: BLOOD SUGAR DIAGNOSTIC STRIP TEST SCH (21:00)
[2021-08-22] MEDS ORDERED: METOPROLOL TARTRATE 50MG TABLET PO ONE (21:00)
[2021-08-22] MEDS ORDERED: PIPERACILLIN/TAZOBACTAM 3.375GM/50ML PREMIX IV SCH (22:00)
[2021-08-22] MEDS: PIPERACILLIN/TAZOBACTAM 3.375G in DEXT 5% WATER 50ML IV SCH (22:29)
[2021-08-22] MEDS: VANCOMYCIN 1GM PMX (XELLIA) 200 ML IV SCH (22:30)
[2021-08-22] MEDS: INSULIN LISPRO 100 UNITS/ML SUBCUT SCH (22:31)
[2021-08-23 00:08] VITALS: BP 128/65
[2021-08-23 04:00] VITALS: BP 132/64
[2021-08-23] MEDS: PIPERACILLIN/TAZOBACTAM 3.375G in DEXT 5% WATER 50ML IV SCH ×3 (06:24→21:23)
[2021-08-23] MEDS: BLOOD SUGAR DIAGNOSTIC STRIP TEST SCH ×4 (06:24→21:14)
[2021-08-23] MEDS: FUROSEMIDE 40MG TABLET PO SCH ×2 (06:24→17:10)
[2021-08-23] MEDS: VANCOMYCIN 1GM PMX (XELLIA) 200 ML IV SCH ×3 (06:24→21:23)
[2021-08-23 07:51] VITALS: BP 129/59
[2021-08-23] MEDS: DILTIAZEM HCL 180MG CAPSULE CD 24HR PO SCH (08:20)
[2021-08-23] MEDS: APIXABAN 5 MG TABLET PO SCH ×2 (08:20→17:10)
[2021-08-23] MEDS: GABAPENTIN 300MG CAPSULE PO SCH ×2 (08:20→17:10)
[2021-08-23] MEDS: INSULIN LISPRO 100 UNITS/ML SUBCUT SCH ×4 (08:22→21:24)
[2021-08-23] MEDS ORDERED: INSULIN GLARGINE 100 UNITS/ML SUBCUT SCH ×2 (09:00→10:00)
[2021-08-23] MEDS ORDERED: NALOXONE HCL 0.4MG/ML VIAL IV PRN (09:00)
[2021-08-23] MEDS: HYDROCODONE/ACETAMINOPHEN 5/325MG TABLET PO PRN ×3 (09:25→19:50)
[2021-08-23 11:52] VITALS: BP 130/66
[2021-08-23 15:37] LABS: HEMATOCRIT. 29.7 % (42.0-52.0); HEMOGLOBIN. 9.9 g/dL (14.0-18.0); MEAN CORPUSCULAR HEMOGLOBIN 28.6 pg (28.0-32.0); MEAN CORPUSCULAR VOLUME 85.8 fL (80.0-94.0); MEAN PLATELET VOLUME 7.6 fl (7.4-10.4); PLATELET 513 x1000/uL (130-400); RED BLOOD CELL COUNT 3.46 mill/uL (4.7-6.1); RED CELL DISTRIBUTION WIDTH 14.5 % (11.6-14.6)
[2021-08-23 15:48] VITALS: BP 112/51
[2021-08-23 15:55] LABS: CHLORIDE 100 mEq/L (98-107)
[2021-08-23 18:28] LABS: PLATELET ESTIMATE INCREASED
[2021-08-23] MEDS ORDERED: POTASSIUM CHLORIDE 20MEQ TABLET SR PO NR (19:15)
[2021-08-23 20:00] VITALS: BP 127/70
[2021-08-23] MEDS: INSULIN GLARGINE 100 UNITS/ML SUBCUT SCH (21:26)
[2021-08-24] VITALS: BP 124/68
[2021-08-24 04:00] VITALS: BP 130/88
[2021-08-24] MEDS: HYDROCODONE/ACETAMINOPHEN 5/325MG TABLET PO PRN ×4 (04:11→21:05)
[2021-08-24 04:37] LABS: CHLORIDE 100 mEq/L (98-107)
[2021-08-24 04:45] LABS: VANCOMYCIN TROUGH 18.3 ug/mL (5.0-10.0)
[2021-08-24 05:28] LABS: HEMATOCRIT. 31.2 % (42.0-52.0); HEMOGLOBIN. 10.4 g/dL (14.0-18.0); MEAN CORPUSCULAR HEMOGLOBIN 28.9 pg (28.0-32.0); MEAN CORPUSCULAR VOLUME 86.5 fL (80.0-94.0); MEAN PLATELET VOLUME 8.1 fl (7.4-10.4); PLATELET 519 x1000/uL (130-400); RED BLOOD CELL COUNT 3.61 mill/uL (4.7-6.1); RED CELL DISTRIBUTION WIDTH 14.4 % (11.6-14.6)
[2021-08-24] MEDS: PIPERACILLIN/TAZOBACTAM 3.375G in DEXT 5% WATER 50ML IV SCH ×3 (05:58→21:08)
[2021-08-24] MEDS: VANCOMYCIN 1GM PMX (XELLIA) 200 ML IV SCH (05:59)
[2021-08-24 06:14] LABS: CANNABINOID URINE SCREEN NEGATIVE (NEGATIVE)
[2021-08-24 06:15] LABS: *AMPHETAMINES SCREEN URINE NEGATIVE (NEGATIVE); *BARBITURATES SCREEN URINE NEGATIVE (NEGATIVE); *BENZODIAZEPINES SCREEN URINE NEGATIVE (NEGATIVE); *COCAINE SCREEN URINE NEGATIVE (NEGATIVE); METHADONE URINE SCREEN NEGATIVE (NEGATIVE); OPIATES URINE SCREEN PRESUMTIVE POSITIVE (NEGATIVE)
[2021-08-24 06:16] LABS: PHENCYCLIDINE URINE SCREEN NEGATIVE (NEGATIVE)
[2021-08-24] MEDS: BLOOD SUGAR DIAGNOSTIC STRIP TEST SCH ×4 (06:40→21:08)
[2021-08-24] MEDS: FUROSEMIDE 40MG TABLET PO SCH ×2 (06:45→17:34)
[2021-08-24] MEDS: INSULIN LISPRO 100 UNITS/ML SUBCUT SCH ×4 (06:46→21:07)
[2021-08-24 08:00] VITALS: BP 130/71
[2021-08-24] MEDS: APIXABAN 5 MG TABLET PO SCH (08:09)
[2021-08-24] MEDS: DILTIAZEM HCL 180MG CAPSULE CD 24HR PO SCH (08:09)
[2021-08-24] MEDS: GABAPENTIN 300MG CAPSULE PO SCH ×2 (08:09→17:05)
[2021-08-24] MEDS: INSULIN GLARGINE 100 UNITS/ML SUBCUT SCH ×2 (09:26→21:08)
[2021-08-24 12:00] VITALS: BP 137/72
[2021-08-24] MEDS ORDERED: POTASSIUM CHLORIDE 20MEQ TABLET SR PO NR (12:00)
[2021-08-24 13:46] LABS: INR 1.2; PROTHROMBIN TIME 12.3 sec (9.6-11.0)
[2021-08-24 15:35] LABS: NUCLEATED RED BLOOD CELLS 1 /100 WBC; PLATELET ESTIMATE INCREASED
[2021-08-24 16:00] VITALS: BP 127/71
[2021-08-24] MEDS: VANCOMYCIN 1500MG in DEXTROSE 5% WATER 250ML IV SCH (17:13)
[2021-08-24] MEDS ORDERED: VANCOMYCIN 1250MG in DEXTROSE 5% WATER 250ML IV SCH (18:00)
[2021-08-24 20:00] VITALS: BP 140/72
[2021-08-24] MEDS: ENOXAPARIN 150MG/ML SYR SUBCUT SCH (21:06)
[2021-08-25] VITALS: BP 147/78
[2021-08-25 04:00] VITALS: BP 147/84
[2021-08-25] MEDS: HYDROCODONE/ACETAMINOPHEN 5/325MG TABLET PO PRN ×3 (05:53→21:30)
[2021-08-25] MEDS: PIPERACILLIN/TAZOBACTAM 3.375G in DEXT 5% WATER 50ML IV SCH ×3 (05:53→21:28)
[2021-08-25] MEDS: VANCOMYCIN 1500MG in DEXTROSE 5% WATER 250ML IV SCH ×2 (05:54→17:02)
[2021-08-25] MEDS: FUROSEMIDE 40MG TABLET PO SCH ×2 (05:54→17:02)
[2021-08-25] MEDS: BLOOD SUGAR DIAGNOSTIC STRIP TEST SCH ×4 (05:54→21:27)
[2021-08-25 08:00] VITALS: BP 150/76
[2021-08-25] MEDS: DILTIAZEM HCL 180MG CAPSULE CD 24HR PO SCH (08:14)
[2021-08-25] MEDS: ENOXAPARIN 150MG/ML SYR SUBCUT SCH ×2 (08:14→21:29)
[2021-08-25] MEDS: GABAPENTIN 300MG CAPSULE PO SCH ×2 (08:14→16:10)
[2021-08-25] MEDS: INSULIN LISPRO 100 UNITS/ML SUBCUT SCH ×4 (08:16→21:00)
[2021-08-25] MEDS: INSULIN GLARGINE 100 UNITS/ML SUBCUT SCH ×2 (09:37→21:29)
[2021-08-25 12:11] VITALS: BP 146/73
[2021-08-25 16:00] VITALS: BP 145/68
[2021-08-25 20:00] VITALS: BP 121/62
[2021-08-26] VITALS: BP 138/67
[2021-08-26] MEDS: HYDROCODONE/ACETAMINOPHEN 5/325MG TABLET PO PRN ×4 (01:26→21:05)
[2021-08-26 04:00] VITALS: BP 146/95
[2021-08-26 04:53] LABS: BASOPHILS % 0.2 % (0.0-2.0); EOSINOPHILS % 0.5 % (0.0-5.0); HEMATOCRIT. 33.3 % (42.0-52.0); LYMPHOCYTES % 7.5 % (20.0-50.0); MEAN CORPUSCULAR HEMOGLOBIN 28.8 pg (28.0-32.0); MEAN CORPUSCULAR VOLUME 87.2 fL (80.0-94.0); MEAN PLATELET VOLUME 7.7 fl (7.4-10.4); MONOCYTES % 6.1 % (2.0-8.0); NEUTROPHILS % 85.7 % (40.0-76.0); PLATELET 568 x1000/uL (130-400); RED BLOOD CELL COUNT 3.82 mill/uL (4.7-6.1); RED CELL DISTRIBUTION WIDTH 14.1 % (11.6-14.6)
[2021-08-26 04:58] LABS: CHLORIDE 98 mEq/L (98-107)
[2021-08-26 05:06] LABS: VANCOMYCIN TROUGH 20.2 ug/mL (5.0-10.0)
[2021-08-26] MEDS: FUROSEMIDE 40MG TABLET PO SCH ×2 (05:38→18:00)
[2021-08-26] MEDS: PIPERACILLIN/TAZOBACTAM 3.375G in DEXT 5% WATER 50ML IV SCH ×3 (05:38→21:04)
[2021-08-26] MEDS: VANCOMYCIN 1500MG in DEXTROSE 5% WATER 250ML IV SCH ×2 (05:49→16:30)
[2021-08-26] MEDS: BLOOD SUGAR DIAGNOSTIC STRIP TEST SCH ×4 (06:05→21:01)
[2021-08-26 08:00] VITALS: BP 125/68
[2021-08-26] MEDS: GABAPENTIN 300MG CAPSULE PO SCH ×2 (08:16→16:30)
[2021-08-26] MEDS: DILTIAZEM HCL 180MG CAPSULE CD 24HR PO SCH (08:16)
[2021-08-26] MEDS: INSULIN LISPRO 100 UNITS/ML SUBCUT SCH ×4 (08:17→21:05)
[2021-08-26] MEDS: ENOXAPARIN 150MG/ML SYR SUBCUT SCH ×2 (08:34→21:00)
[2021-08-26] MEDS: INSULIN GLARGINE 100 UNITS/ML SUBCUT SCH ×2 (11:05→21:06)
[2021-08-26 12:00] VITALS: BP 115/65
[2021-08-26 16:00] VITALS: BP 106/61
[2021-08-26 20:00] VITALS: BP 122/64
[2021-08-26] MEDS: CARVEDILOL 3.125 MG TABLET PO SCH (21:05)
[2021-08-26 21:27] LABS: LDL CHOLESTEROL 50 mg/dL (5-100)
[2021-08-26 21:28] LABS: HDL CHOLESTEROL 33 mg/dL (40-59)
[2021-08-27] VITALS (13 sets, daily range): BP systolic 106–144; BP diastolic 43–77
[2021-08-27] MEDS: HYDROCODONE/ACETAMINOPHEN 5/325MG TABLET PO PRN ×2 (01:04→10:24)
[2021-08-27] MEDS: PIPERACILLIN/TAZOBACTAM 3.375G in DEXT 5% WATER 50ML IV SCH ×3 (05:08→21:43)
[2021-08-27] MEDS: VANCOMYCIN 1500MG in DEXTROSE 5% WATER 250ML IV SCH (05:08)
[2021-08-27] MEDS: FUROSEMIDE 40MG TABLET PO SCH (05:14)
[2021-08-27] MEDS: INSULIN LISPRO 100 UNITS/ML SUBCUT SCH ×4 (07:10→21:56)
[2021-08-27] MEDS: BLOOD SUGAR DIAGNOSTIC STRIP TEST SCH ×4 (07:27→21:54)
[2021-08-27 07:34] LABS: CHLORIDE 89 mEq/L (98-107)
[2021-08-27] MEDS ORDERED: POTASSIUM CHLORIDE INJ 40 MEQ in DEXT 5% WATER 250 ML IV ONE (08:45)
[2021-08-27] MEDS: GABAPENTIN 300MG CAPSULE PO SCH ×2 (09:53→20:04)
[2021-08-27] MEDS: CARVEDILOL 3.125 MG TABLET PO SCH ×2 (09:54→21:52)
[2021-08-27] MEDS: DILTIAZEM HCL 180MG CAPSULE CD 24HR PO SCH (09:54)
[2021-08-27] MEDS: SODIUM CHLORIDE 0.9% 1,000 ML IV SCH ×2 (09:55→22:05)
[2021-08-27] MEDS: INSULIN GLARGINE 100 UNITS/ML SUBCUT SCH ×2 (09:55→23:40)
[2021-08-27 10:07] LABS: HEMOGLOBIN. 7.5 g/dL (14.0-18.0); MEAN CORPUSCULAR HEMOGLOBIN 29.3 pg (28.0-32.0); MEAN CORPUSCULAR VOLUME 86.2 fL (80.0-94.0); MEAN PLATELET VOLUME 7.8 fl (7.4-10.4); PLATELET 374 x1000/uL (130-400); RED BLOOD CELL COUNT 2.55 mill/uL (4.7-6.1); RED CELL DISTRIBUTION WIDTH 14.2 % (11.6-14.6)
[2021-08-27 10:37] LABS: PLATELET ESTIMATE NORMAL
[2021-08-27] MEDS ORDERED: MAGNESIUM GLUCONATE 500MG TABLET PO SCH (11:00)
[2021-08-27] MEDS: KCL 20MEQ/100ML X 2 FOR TOTAL KCL 40MEQ/200ML IV SCH ×2 (11:18→13:47)
[2021-08-27] MEDS: DOCUSATE SODIUM SUGAR FREE 100MG/10ML UDC NG SCH (11:19)
[2021-08-27] MEDS ORDERED: BUPIVACAINE HCL/PF 0.5% (5MG/ML) 30ML ONE (12:26)
[2021-08-27] MEDS ORDERED: LIDOCAINE HCL 1% 20ML VIAL (Pyxis) INJ ONE (12:27)
[2021-08-27] MEDS ORDERED: POLYMYXIN B SULFATE 500000 UNITS/VIAL ONE (12:27)
[2021-08-27] MEDS ORDERED: MORPHINE SULFATE/PF 1MG/ML 10ML AMP ONE (15:53)
[2021-08-27] MEDS ORDERED: CALCIUM CHLORIDE 1GM/10ML SYR IV ONE (16:44)
[2021-08-27] MEDS ORDERED: ALBUMIN HUMAN 25GM/100ML (25%) IV ONE (16:44)
[2021-08-27] MEDS: VANCOMYCIN 1.25GM PMX (XELLIA) 250 ML IV SCH (21:43)
[2021-08-28] VITALS (43 sets, daily range): BP systolic 101–144; BP diastolic 46–87
[2021-08-28 05:26] LABS: BASOPHILS % 0.2 % (0.0-2.0); EOSINOPHILS % 0.5 % (0.0-5.0); HEMATOCRIT. 25.2 % (42.0-52.0); HEMOGLOBIN. 8.5 g/dL (14.0-18.0); LYMPHOCYTES % 7.3 % (20.0-50.0); MEAN CORPUSCULAR HEMOGLOBIN 29.4 pg (28.0-32.0); MEAN CORPUSCULAR VOLUME 87.3 fL (80.0-94.0); MEAN PLATELET VOLUME 7.9 fl (7.4-10.4); MONOCYTES % 6.2 % (2.0-8.0); NEUTROPHILS % 85.8 % (40.0-76.0); PLATELET 376 x1000/uL (130-400); RED BLOOD CELL COUNT 2.89 mill/uL (4.7-6.1); RED CELL DISTRIBUTION WIDTH 14.2 % (11.6-14.6)
[2021-08-28 05:31] LABS: CHLORIDE 101 mEq/L (98-107)
[2021-08-28] MEDS: INSULIN LISPRO 100 UNITS/ML SUBCUT SCH ×4 (07:00→20:41)
[2021-08-28] MEDS: BLOOD SUGAR DIAGNOSTIC STRIP TEST SCH ×4 (07:00→20:41)
[2021-08-28] MEDS: DILTIAZEM HCL 180MG CAPSULE CD 24HR PO SCH (08:06)
[2021-08-28] MEDS: CARVEDILOL 3.125 MG TABLET PO SCH ×2 (08:06→20:40)
[2021-08-28] MEDS: DOCUSATE SODIUM SUGAR FREE 100MG/10ML UDC NG SCH (08:07)
[2021-08-28] MEDS: FUROSEMIDE 40MG TABLET PO SCH ×2 (08:07→17:20)
[2021-08-28] MEDS: GABAPENTIN 300MG CAPSULE PO SCH ×2 (08:07→17:20)
[2021-08-28] MEDS: VANCOMYCIN 1.25GM PMX (XELLIA) 250 ML IV SCH (08:07)
[2021-08-28] MEDS: SODIUM CHLORIDE 0.9% 1,000 ML IV SCH (11:53)
[2021-08-28] MEDS: INSULIN GLARGINE 100 UNITS/ML SUBCUT SCH ×2 (14:07→23:04)
[2021-08-28] MEDS: VANCOMYCIN 1500MG in DEXTROSE 5% WATER 250ML IV SCH (20:41)
[2021-08-29] VITALS (26 sets, daily range): BP systolic 119–158; BP diastolic 55–78
[2021-08-29] MEDS: SODIUM CHLORIDE 0.9% 1,000 ML IV SCH (01:51)
[2021-08-29 05:35] LABS: HEMATOCRIT. 26.7 % (42.0-52.0); HEMOGLOBIN. 8.9 g/dL (14.0-18.0); MEAN CORPUSCULAR HEMOGLOBIN 29.9 pg (28.0-32.0); MEAN CORPUSCULAR VOLUME 89.1 fL (80.0-94.0); MEAN PLATELET VOLUME 8.3 fl (7.4-10.4); PLATELET 374 x1000/uL (130-400); RED BLOOD CELL COUNT 2.99 mill/uL (4.7-6.1); RED CELL DISTRIBUTION WIDTH 14.4 % (11.6-14.6)
[2021-08-29 05:41] LABS: CHLORIDE 103 mEq/L (98-107)
[2021-08-29] MEDS: BLOOD SUGAR DIAGNOSTIC STRIP TEST SCH ×4 (05:55→20:36)
[2021-08-29] MEDS: FUROSEMIDE 40MG TABLET PO SCH ×2 (05:55→17:35)
[2021-08-29] MEDS: INSULIN LISPRO 100 UNITS/ML SUBCUT SCH ×4 (06:39→20:55)
[2021-08-29 08:08] LABS: PLATELET ESTIMATE NORMAL
[2021-08-29] MEDS ORDERED: POTASSIUM CHLORIDE 20MEQ TABLET SR PO NR (09:00)
[2021-08-29] MEDS: DILTIAZEM HCL 180MG CAPSULE CD 24HR PO SCH (09:10)
[2021-08-29] MEDS: DOCUSATE SODIUM SUGAR FREE 100MG/10ML UDC NG SCH (09:10)
[2021-08-29] MEDS: GABAPENTIN 300MG CAPSULE PO SCH ×2 (09:10→17:35)
[2021-08-29] MEDS: CARVEDILOL 3.125 MG TABLET PO SCH ×2 (09:11→20:36)
[2021-08-29] MEDS: INSULIN GLARGINE 100 UNITS/ML SUBCUT SCH ×2 (09:12→21:48)
[2021-08-29] MEDS: VANCOMYCIN 1500MG in DEXTROSE 5% WATER 250ML IV SCH (09:13)
[2021-08-29] MEDS ORDERED: LIDOCAINE HCL 1% 10 MG/ML 10ML VIAL ONE (11:14)
[2021-08-29] MEDS: HYDROCODONE/ACETAMINOPHEN 10/325MG TABLET PO PRN ×2 (12:46→20:36)
[2021-08-29] MEDS ORDERED: CEFEPIME 2,000 MG in DEXT 5% WATER 100 ML IV SCH (18:00)
[2021-08-29] MEDS: CEFEPIME 2,000 MG in DEXT 5% WATER 100 ML IV SCH (20:17)
[2021-08-29] MEDS: VANCOMYCIN 1.25GM PMX (XELLIA) 250 ML IV SCH (20:36)
[2021-08-30] VITALS: BP 123/51
[2021-08-30 04:00] VITALS: BP 159/75
[2021-08-30] MEDS: SODIUM CHLORIDE 0.9% 1,000 ML IV SCH (04:07)
[2021-08-30] MEDS: HYDROCODONE/ACETAMINOPHEN 10/325MG TABLET PO PRN ×3 (04:18→20:39)
[2021-08-30 05:58] LABS: HEMATOCRIT. 26.7 % (42.0-52.0); HEMOGLOBIN. 9.3 g/dL (14.0-18.0); MEAN CORPUSCULAR HEMOGLOBIN 30.2 pg (28.0-32.0); MEAN CORPUSCULAR VOLUME 86.9 fL (80.0-94.0); MEAN PLATELET VOLUME 7.5 fl (7.4-10.4); PLATELET 490 x1000/uL (130-400); RED BLOOD CELL COUNT 3.07 mill/uL (4.7-6.1); RED CELL DISTRIBUTION WIDTH 14.3 % (11.6-14.6)
[2021-08-30] MEDS: FUROSEMIDE 40MG TABLET PO SCH ×2 (06:27→18:09)
[2021-08-30] MEDS: BLOOD SUGAR DIAGNOSTIC STRIP TEST SCH ×4 (06:27→20:40)
[2021-08-30] MEDS: INSULIN LISPRO 100 UNITS/ML SUBCUT SCH ×4 (07:22→20:55)
[2021-08-30 07:55] LABS: CHLORIDE 103 mEq/L (98-107)
[2021-08-30 08:00] VITALS: BP 129/50
[2021-08-30] MEDS ORDERED: POTASSIUM CHLORIDE 20MEQ TABLET SR PO NR (09:00)
[2021-08-30] MEDS: CEFEPIME 2,000 MG in DEXT 5% WATER 100 ML IV SCH ×2 (09:04→20:37)
[2021-08-30] MEDS: GABAPENTIN 300MG CAPSULE PO SCH ×2 (09:05→18:09)
[2021-08-30] MEDS: VANCOMYCIN 1.25GM PMX (XELLIA) 250 ML IV SCH ×2 (09:05→20:37)
[2021-08-30] MEDS: CARVEDILOL 3.125 MG TABLET PO SCH ×2 (09:05→20:39)
[2021-08-30] MEDS: DOCUSATE SODIUM SUGAR FREE 100MG/10ML UDC NG SCH (09:05)
[2021-08-30] MEDS: DILTIAZEM HCL 180MG CAPSULE CD 24HR PO SCH (09:06)
[2021-08-30 09:57] LABS: PLATELET ESTIMATE INCREASED
[2021-08-30] MEDS: INSULIN GLARGINE 100 UNITS/ML SUBCUT SCH ×2 (10:45→21:47)
[2021-08-30 12:00] VITALS: BP 144/68
[2021-08-30 16:00] VITALS: BP 158/73
[2021-08-30 20:00] VITALS: BP 159/72
[2021-08-30] MEDS: ENOXAPARIN 150MG/ML SYR SUBCUT SCH (20:40)
[2021-08-31] VITALS: BP 130/67
[2021-08-31 04:00] VITALS: BP 164/73
[2021-08-31] MEDS: FUROSEMIDE 40MG TABLET PO SCH ×2 (06:28→17:45)
[2021-08-31] MEDS: BLOOD SUGAR DIAGNOSTIC STRIP TEST SCH ×4 (06:29→20:57)
[2021-08-31] MEDS: HYDROCODONE/ACETAMINOPHEN 10/325MG TABLET PO PRN ×2 (06:29→17:00)
[2021-08-31] MEDS: SODIUM CHLORIDE 0.9% 1,000 ML IV SCH ×2 (06:29→19:25)
[2021-08-31 07:13] LABS: CHLORIDE 103 mEq/L (98-107)
[2021-08-31 07:21] LABS: BASOPHILS % 0.2 % (0.0-2.0); EOSINOPHILS % 1.3 % (0.0-5.0); HEMATOCRIT. 27.6 % (42.0-52.0); HEMOGLOBIN. 9.4 g/dL (14.0-18.0); LYMPHOCYTES % 7.5 % (20.0-50.0); MEAN CORPUSCULAR HEMOGLOBIN 29.8 pg (28.0-32.0); MEAN CORPUSCULAR VOLUME 87.9 fL (80.0-94.0); MEAN PLATELET VOLUME 7.6 fl (7.4-10.4); MONOCYTES % 3.1 % (2.0-8.0); NEUTROPHILS % 87.9 % (40.0-76.0); PLATELET 518 x1000/uL (130-400); RED BLOOD CELL COUNT 3.14 mill/uL (4.7-6.1); RED CELL DISTRIBUTION WIDTH 14.7 % (11.6-14.6)
[2021-08-31 08:00] VITALS: BP 139/59
[2021-08-31] MEDS: DILTIAZEM HCL 180MG CAPSULE CD 24HR PO SCH (08:36)
[2021-08-31] MEDS: GABAPENTIN 300MG CAPSULE PO SCH ×2 (08:36→16:59)
[2021-08-31] MEDS: DOCUSATE SODIUM SUGAR FREE 100MG/10ML UDC NG SCH (08:37)
[2021-08-31] MEDS: CEFEPIME 2,000 MG in DEXT 5% WATER 100 ML IV SCH ×2 (08:37→20:57)
[2021-08-31] MEDS: CARVEDILOL 3.125 MG TABLET PO SCH ×2 (08:37→20:57)
[2021-08-31] MEDS: ENOXAPARIN 150MG/ML SYR SUBCUT SCH ×2 (08:37→20:57)
[2021-08-31] MEDS: INSULIN LISPRO 100 UNITS/ML SUBCUT SCH ×4 (08:46→21:00)
[2021-08-31] MEDS ORDERED: POTASSIUM CHLORIDE 20MEQ TABLET SR PO NR (09:45)
[2021-08-31] MEDS: INSULIN GLARGINE 100 UNITS/ML SUBCUT SCH ×2 (10:00→21:06)
[2021-08-31] MEDS: VANCOMYCIN 1.25GM PMX (XELLIA) 250 ML IV SCH (10:18)
[2021-08-31] MEDS: LOSARTAN POTASSIUM 25 MG TABLET PO SCH (10:18)
[2021-08-31 12:30] VITALS: BP 120/66
[2021-08-31 16:15] VITALS: BP 133/58
[2021-08-31 20:00] VITALS: BP 120/56
[2021-09-01] VITALS: BP 108/63
[2021-09-01] MEDS: VANCOMYCIN 1GM PMX (XELLIA) 200 ML IV SCH ×2 (00:47→14:16)
[2021-09-01 04:00] VITALS: BP 123/61
[2021-09-01] MEDS: FUROSEMIDE 40MG TABLET PO SCH ×2 (05:52→17:12)
[2021-09-01] MEDS: HYDROCODONE/ACETAMINOPHEN 10/325MG TABLET PO PRN ×2 (05:57→22:54)
[2021-09-01] MEDS: INSULIN LISPRO 100 UNITS/ML SUBCUT SCH ×4 (06:58→21:00)
[2021-09-01] MEDS: BLOOD SUGAR DIAGNOSTIC STRIP TEST SCH ×4 (06:58→21:00)
[2021-09-01 08:17] VITALS: BP 137/65
[2021-09-01] MEDS: DOCUSATE SODIUM SUGAR FREE 100MG/10ML UDC NG SCH (09:00)
[2021-09-01] MEDS: GABAPENTIN 300MG CAPSULE PO SCH ×2 (09:05→17:12)
[2021-09-01] MEDS: CEFEPIME 2,000 MG in DEXT 5% WATER 100 ML IV SCH ×2 (09:05→22:17)
[2021-09-01] MEDS: LOSARTAN POTASSIUM 25 MG TABLET PO SCH (09:05)
[2021-09-01] MEDS: CARVEDILOL 3.125 MG TABLET PO SCH ×2 (09:06→22:18)
[2021-09-01] MEDS: SODIUM CHLORIDE 0.9% 1,000 ML IV SCH ×2 (09:06→22:56)
[2021-09-01] MEDS: DILTIAZEM HCL 180MG CAPSULE CD 24HR PO SCH (09:06)
[2021-09-01] MEDS: ENOXAPARIN 150MG/ML SYR SUBCUT SCH ×2 (09:07→22:19)
[2021-09-01 11:07] LABS: CHLORIDE 103 mEq/L (98-107)
[2021-09-01 11:19] LABS: BASOPHILS % 0.6 % (0.0-2.0); EOSINOPHILS % 1.8 % (0.0-5.0); HEMATOCRIT. 27.9 % (42.0-52.0); HEMOGLOBIN. 9.4 g/dL (14.0-18.0); LYMPHOCYTES % 9.1 % (20.0-50.0); MEAN CORPUSCULAR HEMOGLOBIN 29.8 pg (28.0-32.0); MEAN CORPUSCULAR VOLUME 88.3 fL (80.0-94.0); MEAN PLATELET VOLUME 7.9 fl (7.4-10.4); MONOCYTES % 4.9 % (2.0-8.0); NEUTROPHILS % 83.6 % (40.0-76.0); PLATELET 486 x1000/uL (130-400); RED BLOOD CELL COUNT 3.16 mill/uL (4.7-6.1); RED CELL DISTRIBUTION WIDTH 14.8 % (11.6-14.6)
[2021-09-01] MEDS: INSULIN GLARGINE 100 UNITS/ML SUBCUT SCH ×2 (11:42→22:00)
[2021-09-01 12:30] VITALS: BP 121/58
[2021-09-01 16:30] VITALS: BP 134/61
[2021-09-01] MEDS ORDERED: POTASSIUM CHLORIDE 20MEQ TABLET SR PO NR (18:45)
[2021-09-01 20:00] VITALS: BP 111/52
[2021-09-02] VITALS: BP 115/49
[2021-09-02 04:00] VITALS: BP 107/61
[2021-09-02] MEDS: VANCOMYCIN 1GM PMX (XELLIA) 200 ML IV SCH ×2 (05:19→12:13)
[2021-09-02] MEDS: FUROSEMIDE 40MG TABLET PO SCH ×2 (06:43→17:54)
[2021-09-02] MEDS: HYDROCODONE/ACETAMINOPHEN 10/325MG TABLET PO PRN (06:44)
[2021-09-02] MEDS: INSULIN LISPRO 100 UNITS/ML SUBCUT SCH ×4 (07:24→20:48)
[2021-09-02] MEDS: BLOOD SUGAR DIAGNOSTIC STRIP TEST SCH ×4 (07:24→20:48)
[2021-09-02 08:00] VITALS: BP 134/65
[2021-09-02] MEDS: CEFEPIME 2,000 MG in DEXT 5% WATER 100 ML IV SCH ×2 (08:31→20:48)
[2021-09-02] MEDS: LOSARTAN POTASSIUM 25 MG TABLET PO SCH (08:32)
[2021-09-02] MEDS: DOCUSATE SODIUM SUGAR FREE 100MG/10ML UDC NG SCH (08:32)
[2021-09-02] MEDS: ENOXAPARIN 150MG/ML SYR SUBCUT SCH ×2 (08:32→20:48)
[2021-09-02] MEDS: DILTIAZEM HCL 180MG CAPSULE CD 24HR PO SCH (08:32)
[2021-09-02] MEDS: CARVEDILOL 3.125 MG TABLET PO SCH ×2 (08:32→20:47)
[2021-09-02] MEDS: GABAPENTIN 300MG CAPSULE PO SCH ×2 (08:32→17:54)
[2021-09-02 10:13] LABS: BASOPHILS % 0.4 % (0.0-2.0); EOSINOPHILS % 2.1 % (0.0-5.0); HEMATOCRIT. 27.7 % (42.0-52.0); HEMOGLOBIN. 9.4 g/dL (14.0-18.0); LYMPHOCYTES % 11.2 % (20.0-50.0); MEAN CORPUSCULAR HEMOGLOBIN 29.8 pg (28.0-32.0); MEAN CORPUSCULAR VOLUME 87.8 fL (80.0-94.0); MEAN PLATELET VOLUME 7.4 fl (7.4-10.4); MONOCYTES % 6.4 % (2.0-8.0); NEUTROPHILS % 79.9 % (40.0-76.0); PLATELET 524 x1000/uL (130-400); RED BLOOD CELL COUNT 3.16 mill/uL (4.7-6.1)
[2021-09-02 10:30] LABS: CHLORIDE 104 mEq/L (98-107)
[2021-09-02] MEDS: SODIUM CHLORIDE 0.9% 1,000 ML IV SCH (10:39)
[2021-09-02] MEDS: INSULIN GLARGINE 100 UNITS/ML SUBCUT SCH ×2 (10:41→20:49)
[2021-09-02] MEDS ORDERED: POTASSIUM CHLORIDE 20MEQ TABLET SR PO NR ×2 (11:00→15:00)
[2021-09-02 12:00] VITALS: BP 111/50
[2021-09-02 16:00] VITALS: BP 128/55
[2021-09-02 20:00] VITALS: BP 141/62
[2021-09-02] MEDS: ACETAMINOPHEN 325MG TABLET PO PRN (20:53)
[2021-09-03] VITALS: BP 104/50
[2021-09-03] MEDS: VANCOMYCIN 1GM PMX (XELLIA) 200 ML IV SCH ×2 (00:52→13:36)
[2021-09-03] MEDS: SODIUM CHLORIDE 0.9% 1,000 ML IV SCH ×2 (00:53→13:36)
[2021-09-03 04:00] VITALS: BP 110/55
[2021-09-03 06:03] LABS: BASOPHILS % 0.8 % (0.0-2.0); EOSINOPHILS % 2.8 % (0.0-5.0); HEMATOCRIT. 24.4 % (42.0-52.0); HEMOGLOBIN. 8.5 g/dL (14.0-18.0); LYMPHOCYTES % 16.1 % (20.0-50.0); MEAN PLATELET VOLUME 7.8 fl (7.4-10.4); MONOCYTES % 8.9 % (2.0-8.0); NEUTROPHILS % 71.4 % (40.0-76.0); PLATELET 504 x1000/uL (130-400); RED BLOOD CELL COUNT 2.74 mill/uL (4.7-6.1); RED CELL DISTRIBUTION WIDTH 15.1 % (11.6-14.6)
[2021-09-03] MEDS: FUROSEMIDE 40MG TABLET PO SCH ×2 (06:21→18:31)
[2021-09-03 06:30] LABS: CHLORIDE 107 mEq/L (98-107)
[2021-09-03] MEDS: BLOOD SUGAR DIAGNOSTIC STRIP TEST SCH ×4 (07:04→21:00)
[2021-09-03] MEDS: INSULIN LISPRO 100 UNITS/ML SUBCUT SCH ×4 (07:04→21:00)
[2021-09-03 08:00] VITALS: BP 136/82
[2021-09-03] MEDS: ENOXAPARIN 150MG/ML SYR SUBCUT SCH (09:00)
[2021-09-03] MEDS: LOSARTAN POTASSIUM 25 MG TABLET PO SCH (09:36)
[2021-09-03] MEDS: CEFEPIME 2,000 MG in DEXT 5% WATER 100 ML IV SCH ×2 (09:36→21:27)
[2021-09-03] MEDS: CARVEDILOL 3.125 MG TABLET PO SCH ×2 (09:36→21:00)
[2021-09-03] MEDS: POTASSIUM CHLORIDE 20MEQ TABLET SR PO SCH ×2 (09:37→18:31)
[2021-09-03] MEDS: DOCUSATE SODIUM SUGAR FREE 100MG/10ML UDC NG SCH (09:37)
[2021-09-03] MEDS: GABAPENTIN 300MG CAPSULE PO SCH ×2 (09:37→18:31)
[2021-09-03] MEDS: DILTIAZEM HCL 180MG CAPSULE CD 24HR PO SCH (09:37)
[2021-09-03] MEDS: INSULIN GLARGINE 100 UNITS/ML SUBCUT SCH ×2 (09:38→23:33)
[2021-09-03 12:00] VITALS: BP 123/63
[2021-09-03] MEDS: HYDROCODONE/ACETAMINOPHEN 10/325MG TABLET PO PRN ×2 (15:50→21:29)
[2021-09-03 16:00] VITALS: BP 127/55
[2021-09-03 16:24] LABS: BASOPHILS % 0.8 % (0.0-2.0); EOSINOPHILS % 2.5 % (0.0-5.0); HEMATOCRIT. 24.7 % (42.0-52.0); HEMOGLOBIN. 8.2 g/dL (14.0-18.0); LYMPHOCYTES % 16.8 % (20.0-50.0); MEAN CORPUSCULAR HEMOGLOBIN 29.8 pg (28.0-32.0); MEAN CORPUSCULAR VOLUME 90.3 fL (80.0-94.0); MEAN PLATELET VOLUME 7.6 fl (7.4-10.4); MONOCYTES % 8.3 % (2.0-8.0); NEUTROPHILS % 71.6 % (40.0-76.0); PLATELET 472 x1000/uL (130-400); RED BLOOD CELL COUNT 2.74 mill/uL (4.7-6.1); RED CELL DISTRIBUTION WIDTH 15.5 % (11.6-14.6)
[2021-09-03 20:00] VITALS: BP 108/48
[2021-09-04] VITALS: BP 131/56
[2021-09-04] MEDS: VANCOMYCIN 1GM PMX (XELLIA) 200 ML IV SCH ×2 (00:56→15:11)
[2021-09-04 04:00] VITALS: BP 138/66
[2021-09-04] MEDS: SODIUM CHLORIDE 0.9% 1,000 ML IV SCH ×2 (05:07→17:52)
[2021-09-04] MEDS: FUROSEMIDE 40MG TABLET PO SCH ×2 (05:07→17:53)
[2021-09-04] MEDS: HYDROCODONE/ACETAMINOPHEN 10/325MG TABLET PO PRN ×2 (05:16→17:53)
[2021-09-04] MEDS: BLOOD SUGAR DIAGNOSTIC STRIP TEST SCH ×4 (06:27→21:00)
[2021-09-04 07:24] LABS: BASOPHILS % 0.5 % (0.0-2.0); EOSINOPHILS % 2.7 % (0.0-5.0); HEMATOCRIT. 23.8 % (42.0-52.0); HEMOGLOBIN. 8.2 g/dL (14.0-18.0); LYMPHOCYTES % 18.3 % (20.0-50.0); MEAN CORPUSCULAR HEMOGLOBIN 30.6 pg (28.0-32.0); MEAN CORPUSCULAR VOLUME 89.1 fL (80.0-94.0); MEAN PLATELET VOLUME 7.5 fl (7.4-10.4); MONOCYTES % 9.8 % (2.0-8.0); NEUTROPHILS % 68.7 % (40.0-76.0); PLATELET 485 x1000/uL (130-400); RED BLOOD CELL COUNT 2.67 mill/uL (4.7-6.1); RED CELL DISTRIBUTION WIDTH 15.5 % (11.6-14.6)
[2021-09-04 07:43] LABS: CHLORIDE 107 mEq/L (98-107)
[2021-09-04] MEDS: INSULIN LISPRO 100 UNITS/ML SUBCUT SCH ×4 (07:50→21:00)
[2021-09-04 08:02] VITALS: BP 131/60
[2021-09-04] MEDS: DOCUSATE SODIUM SUGAR FREE 100MG/10ML UDC NG SCH (09:00)
[2021-09-04] MEDS: CEFEPIME 2,000 MG in DEXT 5% WATER 100 ML IV SCH ×2 (09:42→21:00)
[2021-09-04] MEDS: DILTIAZEM HCL 180MG CAPSULE CD 24HR PO SCH (09:43)
[2021-09-04] MEDS: LOSARTAN POTASSIUM 25 MG TABLET PO SCH (09:43)
[2021-09-04] MEDS: POTASSIUM CHLORIDE 20MEQ TABLET SR PO SCH ×2 (09:43→17:52)
[2021-09-04] MEDS: GABAPENTIN 300MG CAPSULE PO SCH ×2 (09:43→17:56)
[2021-09-04] MEDS: CARVEDILOL 3.125 MG TABLET PO SCH ×2 (09:43→21:00)
[2021-09-04] MEDS: INSULIN GLARGINE 100 UNITS/ML SUBCUT SCH ×2 (09:54→21:12)
[2021-09-04] MEDS ORDERED: POTASSIUM CHLORIDE INJ 40 MEQ in DEXT 5% WATER 250 ML IV SCH (11:00)
[2021-09-04 12:03] VITALS: BP 143/71
[2021-09-04 16:23] VITALS: BP 131/65
[2021-09-04 20:00] VITALS: BP 118/50
[2021-09-04] MEDS: DIPHENHYDRAMINE 25MG CAPSULE PO PRN (21:12)
[2021-09-05] VITALS (7 sets, daily range): BP systolic 116–144; BP diastolic 53–73
[2021-09-05] MEDS: HYDROCODONE/ACETAMINOPHEN 10/325MG TABLET PO PRN ×2 (05:19→23:12)
[2021-09-05] MEDS: SODIUM CHLORIDE 0.9% 1,000 ML IV SCH ×2 (05:20→20:16)
[2021-09-05] MEDS: FUROSEMIDE 40MG TABLET PO SCH ×2 (05:20→17:33)
[2021-09-05] MEDS: BLOOD SUGAR DIAGNOSTIC STRIP TEST SCH ×4 (06:52→20:16)
[2021-09-05 07:06] LABS: CHLORIDE 108 mEq/L (98-107)
[2021-09-05 07:12] LABS: BASOPHILS % 0.7 % (0.0-2.0); EOSINOPHILS % 2.8 % (0.0-5.0); HEMATOCRIT. 24.9 % (42.0-52.0); HEMOGLOBIN. 8.5 g/dL (14.0-18.0); LYMPHOCYTES % 20.8 % (20.0-50.0); MEAN CORPUSCULAR VOLUME 90.8 fL (80.0-94.0); MEAN PLATELET VOLUME 7.4 fl (7.4-10.4); MONOCYTES % 9.2 % (2.0-8.0); NEUTROPHILS % 66.5 % (40.0-76.0); PLATELET 487 x1000/uL (130-400); RED BLOOD CELL COUNT 2.74 mill/uL (4.7-6.1); RED CELL DISTRIBUTION WIDTH 15.7 % (11.6-14.6)
[2021-09-05] MEDS: INSULIN LISPRO 100 UNITS/ML SUBCUT SCH ×4 (07:50→20:27)
[2021-09-05] MEDS: DOCUSATE SODIUM SUGAR FREE 100MG/10ML UDC NG SCH (09:00)
[2021-09-05] MEDS: CARVEDILOL 3.125 MG TABLET PO SCH (09:00)
[2021-09-05] MEDS: DILTIAZEM HCL 180MG CAPSULE CD 24HR PO SCH (09:00)
[2021-09-05] MEDS: CEFEPIME 2,000 MG in DEXT 5% WATER 100 ML IV SCH ×2 (09:45→20:16)
[2021-09-05] MEDS: POTASSIUM CHLORIDE 20MEQ TABLET SR PO SCH ×2 (09:47→16:11)
[2021-09-05] MEDS: GABAPENTIN 300MG CAPSULE PO SCH ×2 (09:47→16:11)
[2021-09-05] MEDS: LOSARTAN POTASSIUM 25 MG TABLET PO SCH (09:47)
[2021-09-05] MEDS: INSULIN GLARGINE 100 UNITS/ML SUBCUT SCH ×2 (09:54→21:23)
[2021-09-05] MEDS: DIPHENHYDRAMINE 25MG CAPSULE PO PRN (10:39)
[2021-09-05] MEDS: BENAZEPRIL 5MG TABLET PO SCH (10:39)
[2021-09-05] MEDS: VANCOMYCIN 1GM PMX (XELLIA) 200 ML IV SCH ×2 (12:58)
[2021-09-06] MEDS: VANCOMYCIN 1GM PMX (XELLIA) 200 ML IV SCH ×2 (00:04→14:00)
[2021-09-06 04:05] VITALS: BP 150/68
[2021-09-06] MEDS: FUROSEMIDE 40MG TABLET PO SCH ×2 (05:25→17:05)
[2021-09-06] MEDS: BLOOD SUGAR DIAGNOSTIC STRIP TEST SCH ×3 (06:28→17:04)
[2021-09-06] MEDS: INSULIN LISPRO 100 UNITS/ML SUBCUT SCH ×3 (07:50→17:04)
[2021-09-06 08:00] VITALS: BP 148/71
[2021-09-06] MEDS: CEFEPIME 2,000 MG in DEXT 5% WATER 100 ML IV SCH (09:23)
[2021-09-06] MEDS: DOCUSATE SODIUM SUGAR FREE 100MG/10ML UDC NG SCH (09:23)
[2021-09-06] MEDS: SODIUM CHLORIDE 0.9% 1,000 ML IV SCH (09:23)
[2021-09-06] MEDS: POTASSIUM CHLORIDE 20MEQ TABLET SR PO SCH ×2 (09:24→17:00)
[2021-09-06] MEDS: HYDROCODONE/ACETAMINOPHEN 10/325MG TABLET PO PRN (09:24)
[2021-09-06] MEDS: GABAPENTIN 300MG CAPSULE PO SCH ×2 (09:24→17:15)
[2021-09-06] MEDS: BENAZEPRIL 5MG TABLET PO SCH (09:24)
[2021-09-06] MEDS: INSULIN GLARGINE 100 UNITS/ML SUBCUT SCH (11:13)
[2021-09-06 12:00] VITALS: BP 139/79
[2021-09-06] MEDS: DILTIAZEM HCL 30MG TABLET PO SCH ×2 (13:59→17:05)
[2021-09-06 16:00] VITALS: BP 107/62
[2021-09-06 16:53] LABS: CHLORIDE 107 mEq/L (98-107)
[2021-09-06 17:07] VITALS: BP 107/62
[2021-09-06] MEDS: DIPHENHYDRAMINE 25MG CAPSULE PO PRN (17:15)
== END 2021-09-06 18:25 | DRG 720 ==
LOC: ER 09:31 → ENRESERV 17:39 → 7EST 20:02 → MICUNO 08-27 19:56 → 6WST 08-29 14:06
PROVIDERS: ADMIT Internal Medicine; ATTEND Internal Medicine
PROC: 0JBM0ZZ Excision of Left Upper Leg Subcutaneous Tissue and Fascia, Open Approach (ICD-10-PCS; principal; 2021-08-27)
PROC: 30233N1 Transfusion of Nonautologous Red Blood Cells into Peripheral Vein, Percutaneous Approach (ICD-10-PCS; 2021-08-27)
PROC: 05HY33Z Insertion of Infusion Device into Upper Vein, Percutaneous Approach (ICD-10-PCS; 2021-08-29)
PROC: B54MZZA Ultrasonography of Right Upper Extremity Veins, Guidance (ICD-10-PCS; 2021-08-29)
DX: A41.02 Sepsis due to Methicillin resistant Staphylococcus aureus (principal); I50.23 Acute on chronic systolic (congestive) heart failure; E43 Unspecified severe protein-calorie malnutrition; I42.9 Cardiomyopathy, unspecified; Z68.44 Body mass index [BMI] 60.0-69.9, adult; I44.1 Atrioventricular block, second degree; I48.0 Paroxysmal atrial fibrillation; L02.416 Cutaneous abscess of left lower limb; L03.116 Cellulitis of left lower limb; I48.91 Unspecified atrial fibrillation; E11.65 Type 2 diabetes mellitus with hyperglycemia; Z20.822 Contact with and (suspected) exposure to COVID-19; D64.9 Anemia, unspecified; G47.33 Obstructive sleep apnea (adult) (pediatric); E66.01 Morbid (severe) obesity due to excess calories; I11.0 Hypertensive heart disease with heart failure; E87.6 Hypokalemia; R65.20 Severe sepsis without septic shock; I89.0 Lymphedema, not elsewhere classified; Z79.4 Long term (current) use of insulin; Z79.01 Long term (current) use of anticoagulants; Z88.8 Allergy status to other drugs, medicaments and biological substances; Z79.899 Other long term (current) drug therapy; Z79.1 Long term (current) use of non-steroidal anti-inflammatories (NSAID); Z91.19 Patient's noncompliance with other medical treatment and regimen; L76.22 Postprocedural hemorrhage of skin and subcutaneous tissue following other procedure
CPT/HCPCS: 36415; 71045; 73701; 76937; 80048; 80053; 80061; 80202; 80305; 82962; 83036; 83605; 83735; 83880; 84145; 84484; 85025; 86850; 86900; 86920; 87070; 87075; 87077; 87186; 87426; 88304; 93005; 93306; 93970; 97116; 97162; 97530; 99291; A6261; C1725; C1893; J0692; J1650; J1815; J2270; J2274; J2543; J3370; J3480; J3490; J7030; J7040; J7060; P9016; P9047; Q0163; Q9967

== ENCOUNTER 2022-03-27 09:26 | Emergency (ER) | payer MEDICAID ==
[~2022-03-27] VITALS: Ht 172.7 cm; Wt 83.0 kg
[~2022-03-27 09:26] MED LIST changes: +BENA-8 PO; -BENA20TA10 PO
[2022-03-27 10:06] LABS: BASOPHILS % 0.5 % (0.0-2.0); EOSINOPHILS % 3.5 % (0.0-5.0); HEMATOCRIT. 38.4 % (42.0-52.0); LYMPHOCYTES % 24.5 % (20.0-50.0); MEAN CORPUSCULAR HEMOGLOBIN 30.1 pg (28.0-32.0); MEAN PLATELET VOLUME 8.3 fl (7.4-10.4); MONOCYTES % 7.4 % (2.0-8.0); NEUTROPHILS % 64.1 % (40.0-76.0); PLATELET 346 x1000/uL (130-400); RED BLOOD CELL COUNT 4.31 mill/uL (4.7-6.1); RED CELL DISTRIBUTION WIDTH 15.5 % (11.6-14.6)
[2022-03-27 10:09] LABS: CHLORIDE 100 mEq/L (98-107)
[2022-03-27 10:11] LABS: INR 1.1; PROTHROMBIN TIME 12.1 sec (9.6-11.0)
[2022-03-27] MEDS ORDERED: HYDRALAZINE 20MG/ML VIAL IV ONE (10:15)
[2022-03-27] MEDS ORDERED: HYDRALAZINE 20MG/ML VIAL IV NR (12:30)
[2022-03-27 13:11] VITALS: BP 144/75
== END 2022-03-27 13:35 | disposition home or self-care (01) ==
LOC: ER 09:26 → CANBEDREQ 14:54
DX: I11.0 Hypertensive heart disease with heart failure (principal); I50.9 Heart failure, unspecified; I44.0 Atrioventricular block, first degree; E11.9 Type 2 diabetes mellitus without complications; E78.5 Hyperlipidemia, unspecified; Z79.899 Other long term (current) drug therapy
CPT/HCPCS: 36415; 80053; 84484; 85025; 85610; 93005; 96374; 99284; J0360

== ENCOUNTER 2022-10-17 11:53 | Emergency (ER) | payer MEDICAID ==
[~2022-10-17] VITALS: Ht 172.7 cm; Wt 120.0 kg
[2022-10-17] MEDS ORDERED: KETOROLAC 30MG/ML VIAL IM ONE (12:15)
[2022-10-17] MEDS ORDERED: IBUP-2029 MT (13:27)
[2022-10-17] MEDS ORDERED: CEPH500C2 MT (13:27)
[2022-10-17] MEDS ORDERED: KETOROLAC 30MG/ML VIAL IM NR (14:45)
[2022-10-18 09:35] VITALS: BP 168/78
[2022-10-18] MEDS ORDERED: IBUPROFEN 600MG TABLET PO ONE (11:15)
== END 2022-10-18 11:41 | disposition home or self-care (01) ==
LOC: ER 11:53
DX: L03.116 Cellulitis of left lower limb (principal); I11.0 Hypertensive heart disease with heart failure; I50.9 Heart failure, unspecified; E11.9 Type 2 diabetes mellitus without complications; Z79.899 Other long term (current) drug therapy
CPT/HCPCS: 73610; 73630; 96372; 99284; J1885; Z7610

== ENCOUNTER 2023-12-01 08:53 | Emergency (ER) | payer MEDICAID ==
[~2023-12-01] VITALS: Ht 172.7 cm; Wt 165.0 kg
[~2023-12-01 08:53] MED LIST changes: -APIX5TAB PO; -COLL30OI TP; +IBUP-2029 MT; -INSU100I38 SQ; +INSU100I53 SQ; -LINA145C PO; -METF-414 MT; +METF-416 PO; -METO-539 PO; +METO100T16 PO; +POTA-202 PO; +RIVA20TA PO
[2023-12-01 08:54] VITALS: O2SAT 100
[2023-12-01 09:24] LABS: BASOPHILS % 0.5 % (0.0-2.0); EOSINOPHILS % 3.2 % (0.0-5.0); HEMATOCRIT. 38.4 % (42.0-52.0); HEMOGLOBIN. 13.1 g/dL (14.0-18.0); LYMPHOCYTES % 24.9 % (20.0-50.0); MEAN CORPUSCULAR HEMOGLOBIN 30.8 pg (28.0-32.0); MEAN CORPUSCULAR VOLUME 90.6 fL (80.0-94.0); MEAN PLATELET VOLUME 8.5 fl (7.4-10.4); MONOCYTES % 9.3 % (2.0-8.0); NEUTROPHILS % 62.1 % (40.0-76.0); PLATELET 294 x1000/uL (130-400); RED BLOOD CELL COUNT 4.24 mill/uL (4.7-6.1); RED CELL DISTRIBUTION WIDTH 14.3 % (11.6-14.6); WHITE BLOOD COUNT 5.4 x1000/uL (4.5-11.0)
[2023-12-01 09:34] LABS: CHLORIDE 102 mEq/L (98-107); POTASSIUM 3.5 mEq/L (3.5-5.1); SODIUM 137 mEq/L (136-145)
[2023-12-01 09:35] LABS: CALCIUM 9.5 mg/dL (8.7-10.4); CARBON DIOXIDE 27 mEq/L (21-32); INR 1.1; PARTIAL THROMBOPLASTIN TIME 30.6 sec (23.4-31.0); PROTHROMBIN TIME 12.2 sec (9.6-11.0)
[2023-12-01 09:40] LABS: CREATININE 0.9 mg/dL (0.6-1.3); GLUCOSE 216 mg/dL (70-105); UREA NITROGEN BLOOD 9 mg/dL (9-23)
[2023-12-01 09:41] LABS: ETHANOL BLOOD < 10 mg/dL (<10)
[2023-12-01 09:42] LABS: ALANINE AMINOTRANSFERASE 23 IU/L (10-49); ALBUMIN 4.5 g/dL (3.2-4.8); ASPARTATE AMINOTRANSFERASE 23 IU/L (<34); BILIRUBIN DIRECT 0.3 mg/dL (<=3.0); BILIRUBIN TOTAL 0.7 mg/dL (0.1-1.0)
[2023-12-01 09:46] LABS: TROPONIN I HIGH SENSITIVITY < 4 ng/L (3.0-53)
[2023-12-01 11:07] LABS: CLARITY URINE CLEAR (CLEAR); COLOR URINE YELLOW (YELLOW); GLUCOSE URINE 2+ (NEGATIVE); KETONES URINE 1+ (NEGATIVE); LEUKOCYTE ESTERASE URINE NEGATIVE (NEGATIVE); NITRITE URINE NEGATIVE (NEGATIVE); OCCULT BLOOD URINE 3+ (NEGATIVE); PH URINE 6.5 (4.5-8.0); PROTEIN URINE TRACE (NEGATIVE); SPECIFIC GRAVITY URINE 1.024 (1.005-1.030)
[2023-12-01 11:24] LABS: RBC URINE 50-100 /hpf (0-2); SQUAMOUS EPITHELIAL CELL URINE 1+ /lpf (RARE/1+)
[2023-12-01 11:25] LABS: BACTERIA URINE TRACE; WBC URINE 0-2 /hpf (0-2)
[2023-12-01 11:27] LABS: *AMPHETAMINES SCREEN URINE NEGATIVE (NEGATIVE); *BARBITURATES SCREEN URINE NEGATIVE (NEGATIVE); *BENZODIAZEPINES SCREEN URINE NEGATIVE (NEGATIVE); *COCAINE SCREEN URINE NEGATIVE (NEGATIVE); CANNABINOID URINE SCREEN NEGATIVE (NEGATIVE); ECSTASY MDMA SCREEN URINE NEGATIVE (NEGATIVE); METHADONE URINE SCREEN NEGATIVE (NEGATIVE); OPIATES URINE SCREEN NEGATIVE (NEGATIVE); PHENCYCLIDINE URINE SCREEN NEGATIVE (NEGATIVE)
[2023-12-01] MEDS: LABETALOL HCL 100MG TABLET PO ONE (11:31)
[2023-12-01 12:46] LABS: TROPONIN I HIGH SENSITIVITY 4 ng/L (3.0-53)
[2023-12-01] MEDS: HYDRALAZINE 20MG/ML VIAL IV ONE (13:41)
[2023-12-01] MEDS: ACETAMINOPHEN 325MG TABLET PO ONE (13:43)
[2023-12-01 15:44] VITALS: BP 186/97; PULSE 68; RESP 16; TEMP 98
== END 2023-12-01 15:47 | disposition home or self-care (01) ==
LOC: ER 08:53
DX: R07.89 Other chest pain (principal); I10 Essential (primary) hypertension; I11.0 Hypertensive heart disease with heart failure; I50.9 Heart failure, unspecified; I48.91 Unspecified atrial fibrillation; E11.9 Type 2 diabetes mellitus without complications; Z79.899 Other long term (current) drug therapy
CPT/HCPCS: 80076; 80305; 80048; 81003; 80320; 83880; 83690; 85025; 85610; 85730; 84484; 36415; 71045; 76770; 93005; 96374; 99285; J0360; G0480

== ENCOUNTER 2024-07-18 18:29 | Inpatient (IN) | payer MEDICAID ==
[~2024-07-18] VITALS: Ht 182.9 cm; Wt 198.2 kg
[2024-07-18] MEDS: ENOXAPARIN 150MG/ML SYR SUBCUT ONE (02:13)
[~2024-07-18 18:29] MED LIST changes: -ATOR40TA70 PO; -BENA-8 PO; -DILT180C66 PO; -DOCU-150 PO; -FURO40TA5 PO; -GABA-532 PO; +HYDR25TA78 PO; -IBUP-2029 MT; -INSU100I24 SQ; -INSU100I53 SQ; +LOSA50TA41 MT; -METF-416 PO; -POLY17PO3 PO; -POTA-202 PO; -RIVA20TA PO; -SEMA0.25 SQ; -SENN1TAB35 PO; -TOPUD PO
[2024-07-18] MEDS ORDERED: NITROGLYCERIN 0.4MG TABLET SL SL PRN (19:00)
[2024-07-18] MEDS: FUROSEMIDE 40MG/4ML VIAL IVP ONE (19:15)
[2024-07-18] MEDS: ASPIRIN 81MG TABLET PO ONE (20:10)
[2024-07-18 21:12] LABS: BG BASE EXCESS -15.9 mmol/L (-2.0-3.0); BG CARBOXYHEMOGLOBIN 0.7 % (0.5-1.5); BG DEOXYHEMOGLOBIN 3.5 % (0.0-5.0); BG HCO3 ACT 10.7 mmol/L (21.0-28.0); BG METHEMOGLOBIN 0.1 % (0.5-1.5); BG OXYGEN SATURATION 96.5 % (94.0-98.0); BG OXYHEMOGLOBIN 95.7 % (94.0-98.0); BG PCO2 27.9 mmHg (35.0-48.0); BG PO2 91.4 mmHg (83.0-108.0); BG SAMPLE SITE RIGHT RADIAL; BG TOTAL HEMOGLOBIN 13.2 g/dL (13.5-17.5); BG VENT MODE ROOM AIR
[2024-07-18 21:28] VITALS: RESP 24
[2024-07-18 21:43] LABS: HEMOGLOBIN. 12.1 g/dL (14.0-18.0); MEAN CORPUSCULAR HEMOGLOBIN 30.5 pg (28.0-32.0); MEAN CORPUSCULAR HGB CONC 31.9 g/dL (31.0-37.0); MEAN CORPUSCULAR VOLUME 95.6 fL (80.0-94.0); PLATELET 203 x1000/uL (130-400); RED BLOOD CELL COUNT 3.97 mill/uL (4.7-6.1); RED CELL DISTRIBUTION WIDTH 15.3 % (11.6-14.6); WHITE BLOOD COUNT 15.4 x1000/uL (4.5-11.0)
[2024-07-18 21:52] LABS: CHLORIDE 97 mEq/L (98-107); POTASSIUM 4.4 mEq/L (3.5-5.1); SODIUM 131 mEq/L (136-145)
[2024-07-18 21:53] LABS: CALCIUM 9.6 mg/dL (8.7-10.4); CARBON DIOXIDE 12 mEq/L (21-32)
[2024-07-18 21:57] LABS: DIFFERENTIAL COMMENT 1
[2024-07-18 21:58] LABS: UREA NITROGEN BLOOD 40 mg/dL (9-23)
[2024-07-18 21:59] LABS: TROPONIN I HIGH SENSITIVITY 14 ng/L (3.0-53)
[2024-07-18 22:00] LABS: ALANINE AMINOTRANSFERASE 39 IU/L (10-49); ALBUMIN 4.2 g/dL (3.2-4.8); ASPARTATE AMINOTRANSFERASE 72 IU/L (<34); BILIRUBIN DIRECT 0.3 mg/dL (<=3.0)
[2024-07-18 22:01] LABS: BETA HYDROXYBUTYRATE 7.8 mMol/L (0.0-0.3); BILIRUBIN TOTAL 0.5 mg/dL (0.1-1.0); CREATININE 2.3 mg/dL (0.6-1.3); GLUCOSE 373 mg/dL (70-105); PROTEIN TOTAL 8.2 g/dL (6.0-8.3)
[2024-07-18 22:05] LABS: PARTIAL THROMBOPLASTIN TIME 36.3 sec (23.4-31.0); PROTHROMBIN TIME 11.5 sec (9.6-11.0)
[2024-07-18] MEDS ORDERED: DEXTROSE 50% WATER 50ML SYRINGE IV PRN (22:15)
[2024-07-18] MEDS ORDERED: BLOOD SUGAR DIAGNOSTIC STRIP TEST PRN (22:15)
[2024-07-18] MEDS ORDERED: INSULIN REGULAR (DRIP) 100 UNITS in SODIUM CHLORIDE 0.9% 99 ML IV SCH (22:15)
[2024-07-18 22:54] LABS: PLATELET ESTIMATE NORMAL
[2024-07-18] MEDS: BLOOD SUGAR DIAGNOSTIC STRIP TEST SCH (23:15)
[2024-07-18 23:36] LABS: POTASSIUM 4.4 mEq/L (3.5-5.1)
[2024-07-18 23:37] LABS: CALCIUM 8.4 mg/dL (8.7-10.4)
[2024-07-18 23:42] LABS: CREATININE 2.2 mg/dL (0.6-1.3)
[2024-07-18] MEDS: INSULIN REGULAR 100U/100ML PMX 100 ML IV SCH (23:54)
[2024-07-19] VITALS (68 sets, daily range): BP systolic 69–150; BP diastolic 24–110; PULSE 106–172; RESP 15–42; TEMP 36.7–38.8; O2SAT 81–100
[2024-07-19] MEDS: SODIUM CHLORIDE 0.45% 500 ML IV ONE
[2024-07-19 00:12] LABS: BG BASE EXCESS -15.5 mmol/L (-2.0-3.0); BG CARBOXYHEMOGLOBIN 0.5 % (0.5-1.5); BG DEOXYHEMOGLOBIN 0.5 % (0.0-5.0); BG FRACTION INSPIRED OXYGEN 40; BG HCO3 ACT 11.2 mmol/L (21.0-28.0); BG METHEMOGLOBIN 0.2 % (0.5-1.5); BG OXYGEN SATURATION 99.5 % (94.0-98.0); BG OXYHEMOGLOBIN 98.8 % (94.0-98.0); BG PCO2 29.3 mmHg (35.0-48.0); BG PO2 198.3 mmHg (83.0-108.0); BG SAMPLE SITE RIGHT RADIAL; BG TOTAL HEMOGLOBIN 11.5 g/dL (13.5-17.5); BG VENT MODE MASK - BIPAP
[2024-07-19 00:35] LABS: CHLORIDE 99 mEq/L (98-107); POTASSIUM 4.3 mEq/L (3.5-5.1); SODIUM 133 mEq/L (136-145)
[2024-07-19 00:36] LABS: CALCIUM 8.3 mg/dL (8.7-10.4); CARBON DIOXIDE 13 mEq/L (21-32)
[2024-07-19 00:41] LABS: CREATININE 2.2 mg/dL (0.6-1.3); GLUCOSE 391 mg/dL (70-105); UREA NITROGEN BLOOD 46 mg/dL (9-23)
[2024-07-19 00:43] LABS: PHOSPHORUS 4.1 mg/dL (2.5-4.9)
[2024-07-19 01:09] LABS: CREATINE KINASE MB FRACTION 7.5 ng/mL (0.5-3.6); IRON 17 ug/dL (65-175)
[2024-07-19 01:10] LABS: LDL CHOLESTEROL 23 mg/dL (5-100); TRIGLYCERIDE 83 mg/dL (0-150); TROPONIN I HIGH SENSITIVITY 12 ng/L (3.0-53)
[2024-07-19 01:11] LABS: CHOLESTEROL 73 mg/dL (<200); CREATINE KINASE 1112 IU/L (46-171); HDL CHOLESTEROL 21 mg/dL (>55)
[2024-07-19 01:14] LABS: T4 FREE 0.69 ng/dL (0.89-1.76); THYROID STIMULATING HORMONE 1.34 uIU/mL (0.55-4.78)
[2024-07-19 01:29] LABS: TOTAL IRON BINDING CAPACITY > 670 ug/dl (250-425)
[2024-07-19] MEDS: CEFTRIAXONE 1GM/50ML 50 ML IV SCH (02:13)
[2024-07-19] MEDS: INSULIN REGULAR (HUMULIN R) 1000UNITS/10ML VIAL IV NR (02:15)
[2024-07-19] MEDS: KCL 20MEQ/100ML PREMIX 100 ML IV ONE (02:59)
[2024-07-19] MEDS: DOXYCYCLINE 100MG/100ML 100 ML IV NR (03:12)
[2024-07-19 03:18] LABS: FERRITIN 245 ng/mL (22-322)
[2024-07-19 04:20] LABS: VITAMIN B12 SERUM > 2000 pg/mL (211-911)
[2024-07-19] MEDS ORDERED: HYDRALAZINE 20MG/ML VIAL IV PRN (04:30)
[2024-07-19 05:07] LABS: HIV 1/2 AB P24AG Negative (Negative)
[2024-07-19 05:22] LABS: CHLORIDE 102 mEq/L (98-107); POTASSIUM 3.9 mEq/L (3.5-5.1); SODIUM 136 mEq/L (136-145)
[2024-07-19 05:23] LABS: CARBON DIOXIDE 19 mEq/L (21-32)
[2024-07-19 05:24] LABS: CALCIUM 8.5 mg/dL (8.7-10.4)
[2024-07-19 05:27] LABS: HEMATOCRIT. 32.2 % (42.0-52.0); HEMOGLOBIN. 10.6 g/dL (14.0-18.0); MEAN CORPUSCULAR HEMOGLOBIN 30.1 pg (28.0-32.0); MEAN CORPUSCULAR HGB CONC 33.1 g/dL (31.0-37.0); MEAN PLATELET VOLUME 9.6 fl (7.4-10.4); PLATELET 157 x1000/uL (130-400); RED BLOOD CELL COUNT 3.54 mill/uL (4.7-6.1); WHITE BLOOD COUNT 13.1 x1000/uL (4.5-11.0)
[2024-07-19 05:28] LABS: CREATININE 2.3 mg/dL (0.6-1.3); UREA NITROGEN BLOOD 48 mg/dL (9-23)
[2024-07-19 05:29] LABS: LACTIC ACID 3.2 mmol/L (0.4-2.0)
[2024-07-19 05:31] LABS: PHOSPHORUS 2.8 mg/dL (2.5-4.9)
[2024-07-19 05:39] LABS: GLUCOSE 224 mg/dL (70-105)
[2024-07-19 05:44] LABS: HEPATITIS B SURFACE ANTIGEN NEGATIVE (Negative)
[2024-07-19 05:58] LABS: BG BASE EXCESS -9.9 mmol/L (-2.0-3.0); BG DEOXYHEMOGLOBIN 0.8 % (0.0-5.0); BG HCO3 ACT 17.4 mmol/L (21.0-28.0); BG OXYGEN SATURATION 99.2 % (94.0-98.0); BG OXYHEMOGLOBIN 99.2 % (94.0-98.0); BG PCO2 43.6 mmHg (35.0-48.0); BG PH 7.218 (7.350-7.450); BG PO2 160.2 mmHg (83.0-108.0); BG SAMPLE SITE RIGHT RADIAL; BG TOTAL HEMOGLOBIN 11.6 g/dL (13.5-17.5); BG VENT MODE MASK - SIMPLE
[2024-07-19] MEDS: NOREPINEPHRINE 8MG/250ML PMX 250 ML IV PRN (06:19)
[2024-07-19 07:05] LABS: DIFFERENTIAL COMMENT 1
[2024-07-19] MEDS: KCL 20MEQ/100ML PREMIX 100 ML IV NR (07:19)
[2024-07-19] MEDS: DEXT 5%/0.45% NACL 1000ML 1,000 ML IV ONE (07:19)
[2024-07-19] MEDS ORDERED: VANCOMYCIN 1GM/200ML PMX (BAXTER) IV SCH (08:00)
[2024-07-19 08:52] LABS: BG BASE EXCESS -6.4 mmol/L (-2.0-3.0); BG CARBOXYHEMOGLOBIN 0.4 % (0.5-1.5); BG DEOXYHEMOGLOBIN 0.1 % (0.0-5.0); BG FRACTION INSPIRED OXYGEN 60; BG HCO3 ACT 19.7 mmol/L (21.0-28.0); BG METHEMOGLOBIN 0.2 % (0.5-1.5); BG OXYGEN SATURATION 99.9 % (94.0-98.0); BG OXYHEMOGLOBIN 99.3 % (94.0-98.0); BG PCO2 41.6 mmHg (35.0-48.0); BG PH 7.294 (7.350-7.450); BG PO2 282.1 mmHg (83.0-108.0); BG SAMPLE SITE RIGHT RADIAL; BG TOTAL HEMOGLOBIN 11.3 g/dL (13.5-17.5); BG VENT MODE MASK - SIMPLE
[2024-07-19] MEDS ORDERED: ENOXAPARIN 150MG/ML SYR SUBCUT SCH (09:00)
[2024-07-19] MEDS: CEFEPIME 1GM/50ML 50 ML IV SCH (09:00)
[2024-07-19] MEDS ORDERED: CEFEPIME 1GM IN DEXT 5% 50ML IV SCH (09:00)
[2024-07-19] MEDS: PANTOPRAZOLE SODIUM 40 MG/VIAL IV SCH (09:00)
[2024-07-19] MEDS ORDERED: NALOXONE HCL 0.4MG/ML VIAL IV PRN (09:00)
[2024-07-19] MEDS ORDERED: POTASSIUM CHLORIDE 40 MEQ in SODIUM CHLORIDE 0.9% 230 ML IV PRN ×2 (09:45)
[2024-07-19] MEDS ORDERED: BLOOD SUGAR DIAGNOSTIC STRIP TEST PRN ×2 (09:45)
[2024-07-19] MEDS ORDERED: DEXTROSE 50% WATER 50ML SYRINGE IV PRN ×4 (09:45→16:15)
[2024-07-19] MEDS ORDERED: BLOOD SUGAR DIAGNOSTIC STRIP TEST SCH (09:45)
[2024-07-19] MEDS ORDERED: SODIUM PHOSPHATE 15 MMOL in SODIUM CHLORIDE 0.9% 245 ML IV PRN ×2 (09:45)
[2024-07-19] MEDS ORDERED: KCL 20MEQ/100ML PREMIX 100 ML IV PRN ×2 (09:45)
[2024-07-19] MEDS ORDERED: SODIUM CHLORIDE 0.9% 1,000 ML IV SCH (10:00)
[2024-07-19] MEDS ORDERED: MAGNESIUM 2 G PREMIX 50 ML IV PRN ×2 (10:00)
[2024-07-19] MEDS: IPRATROPIUM BROMIDE (0.02%) 0.5MG/2.5ML NEB HHN SCH (10:28)
[2024-07-19] MEDS: BUDESONIDE 0.5MG/2ML NEB HHN SCH (10:28)
[2024-07-19] MEDS: LIDOCAINE HCL 1% 10 MG/ML 10ML VIAL ONE (10:51)
[2024-07-19] MEDS: INSULIN REGULAR 100U/100ML PMX 100 ML IV PRN (10:58)
[2024-07-19] MEDS: DEXT 5%/0.9% NACL 1,000 ML IV SCH (10:59)
[2024-07-19 11:53] LABS: CHLORIDE 103 mEq/L (98-107); POTASSIUM 3.9 mEq/L (3.5-5.1); SODIUM 136 mEq/L (136-145)
[2024-07-19 11:54] LABS: CALCIUM 8.4 mg/dL (8.7-10.4); CARBON DIOXIDE 24 mEq/L (21-32)
[2024-07-19 11:59] LABS: CREATININE 2.1 mg/dL (0.6-1.3); GLUCOSE 169 mg/dL (70-105); UREA NITROGEN BLOOD 49 mg/dL (9-23)
[2024-07-19 12:01] LABS: PHOSPHORUS 2.1 mg/dL (2.5-4.9)
[2024-07-19 12:07] LABS: PLATELET ESTIMATE NORMAL
[2024-07-19] MEDS: VANCOMYCIN 1GM/200ML PMX (BAXTER) IV SCH (13:10)
[2024-07-19 14:44] LABS: BG BASE EXCESS -4.2 mmol/L (-2.0-3.0); BG CARBOXYHEMOGLOBIN 0.8 % (0.5-1.5); BG DEOXYHEMOGLOBIN 1.5 % (0.0-5.0); BG FRACTION INSPIRED OXYGEN 40; BG HCO3 ACT 22.5 mmol/L (21.0-28.0); BG METHEMOGLOBIN 0.1 % (0.5-1.5); BG OXYGEN SATURATION 98.5 % (94.0-98.0); BG OXYHEMOGLOBIN 97.6 % (94.0-98.0); BG PH 7.297 (7.350-7.450); BG PO2 120.4 mmHg (83.0-108.0); BG SAMPLE SITE RIGHT RADIAL; BG TOTAL HEMOGLOBIN 14.6 g/dL (13.5-17.5); BG VENT MODE MASK - BIPAP
[2024-07-19] MEDS: MORPHINE SULFATE 2 MG/ML INJ (NOT FOR IM USE) IV PRN (15:12)
[2024-07-19 16:10] LABS: CARBON DIOXIDE 22 mEq/L (21-32); CHLORIDE 105 mEq/L (98-107); SODIUM 137 mEq/L (136-145)
[2024-07-19] MEDS: INSULIN GLARGINE 100 UNITS/ML SUBCUT SCH (16:14)
[2024-07-19 16:15] LABS: GLUCOSE 171 mg/dL (70-105)
[2024-07-19] MEDS: INSULIN LISPRO 100 UNITS/ML SUBCUT SCH ×3 (16:15→17:33)
[2024-07-19 16:16] LABS: UREA NITROGEN BLOOD 45 mg/dL (9-23)
[2024-07-19 16:17] LABS: ALANINE AMINOTRANSFERASE 29 IU/L (10-49); ASPARTATE AMINOTRANSFERASE 61 IU/L (<34)
[2024-07-19 16:18] LABS: ALBUMIN 2.8 g/dL (3.2-4.8); BILIRUBIN TOTAL 0.3 mg/dL (0.1-1.0)
[2024-07-19 16:22] LABS: PROTEIN TOTAL 5.3 g/dL (6.0-8.3)
[2024-07-19] MEDS: INSULIN GLARGINE 100 UNITS/ML SUBCUT NR (16:34)
[2024-07-19] MEDS: BLOOD SUGAR DIAGNOSTIC STRIP TEST SCH ×2 (16:35)
[2024-07-19] MEDS: ENOXAPARIN 40MG/0.4ML SYR SUBCUT SCH (17:36)
[2024-07-19] MEDS: WATER IV SCH (17:36)
[2024-07-19] MEDS: DEXT 5% IV SCH (17:36)
[2024-07-19] MEDS: POTASSIUM PHOSPHATE IV SCH (17:36)
[2024-07-19] MEDS ORDERED: HYDROMORPHONE HCL/PF 2MG/ML INJ IM PRN (18:15)
[2024-07-19 20:56] LABS: CHLORIDE 106 mEq/L (98-107); POTASSIUM 4.3 mEq/L (3.5-5.1); SODIUM 137 mEq/L (136-145)
[2024-07-19 20:57] LABS: CALCIUM 7.9 mg/dL (8.7-10.4); CARBON DIOXIDE 22 mEq/L (21-32)
[2024-07-19 21:00] LABS: HEPATITIS A AB IGM NEGATIVE (Negative); HEPATITIS B CORE AB IGM NEGATIVE (Negative); HEPATITIS C AB NON REACTIVE (Neg) (Negative)
[2024-07-19] MEDS ORDERED: DOXYCYCLINE 100MG/100ML 100 ML IV SCH (21:00)
[2024-07-19 21:02] LABS: CREATININE 1.9 mg/dL (0.6-1.3); GLUCOSE 285 mg/dL (70-105); UREA NITROGEN BLOOD 46 mg/dL (9-23)
[2024-07-19 21:04] LABS: ALANINE AMINOTRANSFERASE 29 IU/L (10-49); ALBUMIN 2.7 g/dL (3.2-4.8); ASPARTATE AMINOTRANSFERASE 60 IU/L (<34); BILIRUBIN TOTAL 0.4 mg/dL (0.1-1.0); PROTEIN TOTAL 5.7 g/dL (6.0-8.3)
[2024-07-19] MEDS: ATORVASTATIN CALCIUM 40MG TABLET PO SCH (21:07)
[2024-07-19] MEDS: HYDROMORPHONE HCL/PF 1MG/ML INJ IM PRN (21:08)
[2024-07-19] MEDS: HYDROMORPHONE HCL/PF 1MG/ML INJ IV NR (22:41)
[2024-07-19] MEDS: PHENYLEPHRINE 50MG/250ML PMX 250 ML IV PRN (23:24)
[2024-07-19] MEDS: METOPROLOL TARTRATE 50MG TABLET PO NR (23:25)
[2024-07-19 23:34] LABS: CHLORIDE 105 mEq/L (98-107); POTASSIUM 4.3 mEq/L (3.5-5.1)
[2024-07-19 23:35] LABS: SODIUM 137 mEq/L (136-145)
[2024-07-19 23:36] LABS: CARBON DIOXIDE 21 mEq/L (21-32)
[2024-07-20] VITALS (104 sets, daily range): BP systolic 35–170; BP diastolic 27–145; PULSE 99–142; RESP 11–29; TEMP 36.6–37.7; O2SAT 88–100
[2024-07-20] MEDS: ACETAMINOPHEN 325MG TABLET PO PRN (03:10)
[2024-07-20 05:56] LABS: HEMATOCRIT. 33.2 % (42.0-52.0); HEMOGLOBIN. 10.9 g/dL (14.0-18.0); MEAN CORPUSCULAR VOLUME 90.8 fL (80.0-94.0); MEAN PLATELET VOLUME 10.9 fl (7.4-10.4); PLATELET 114 x1000/uL (130-400); RED BLOOD CELL COUNT 3.65 mill/uL (4.7-6.1); RED CELL DISTRIBUTION WIDTH 15.3 % (11.6-14.6); WHITE BLOOD COUNT 15.9 x1000/uL (4.5-11.0)
[2024-07-20 06:24] LABS: POTASSIUM 4.4 mEq/L (3.5-5.1)
[2024-07-20 06:25] LABS: CALCIUM 7.9 mg/dL (8.7-10.4)
[2024-07-20 06:30] LABS: CREATININE 2.2 mg/dL (0.6-1.3)
[2024-07-20 06:50] LABS: DIFFERENTIAL COMMENT 1
[2024-07-20 08:53] LABS: BG BASE EXCESS -6.5 mmol/L (-2.0-3.0); BG CARBOXYHEMOGLOBIN 0.6 % (0.5-1.5); BG DEOXYHEMOGLOBIN 2.2 % (0.0-5.0); BG FRACTION INSPIRED OXYGEN 30; BG HCO3 ACT 19.3 mmol/L (21.0-28.0); BG METHEMOGLOBIN 0.3 % (0.5-1.5); BG OXYGEN SATURATION 97.8 % (94.0-98.0); BG OXYHEMOGLOBIN 96.9 % (94.0-98.0); BG PCO2 39.4 mmHg (35.0-48.0); BG PH 7.308 (7.350-7.450); BG PO2 99.3 mmHg (83.0-108.0); BG SAMPLE SITE RIGHT RADIAL; BG TOTAL HEMOGLOBIN 10.7 g/dL (13.5-17.5); BG VENT MODE MASK - BIPAP
[2024-07-20 09:12] LABS: FOLATE HEMATOCRIT 32.3 % (37.5-51.0)
[2024-07-20 09:52] LABS: INFLUENZA TYPE A Presumptive Negative (Pres. Neg.); INFLUENZA TYPE B Presumptive Negative (Pres. Neg.)
[2024-07-20] MEDS: METOPROLOL TARTRATE 50MG TABLET PO SCH (11:17)
[2024-07-20] MEDS: HYDROCODONE/ACETAMINOPHEN 5/325MG TABLET PO PRN (11:17)
[2024-07-20 11:18] LABS: ANISOCYTOSIS 1+; NUCLEATED RED BLOOD CELLS 2 /100 WBC; PLATELET ESTIMATE SLIGHTLY DECREASED
[2024-07-20] MEDS: LACTATED RINGERS 1,000 ML IV SCH (11:27)
[2024-07-20] MEDS: INSULIN GLARGINE 100 UNITS/ML SUBCUT SCH (11:30)
[2024-07-20 11:54] LABS: TROPONIN I HIGH SENSITIVITY 24 ng/L (3.0-53)
[2024-07-20 13:10] LABS: FOLATE RBC 1146 ng/mL (>498)
[2024-07-20] MEDS: VANCOMYCIN 1.25GM PMX (XELLIA) 250 ML IV SCH (14:12)
[2024-07-20] MEDS: DIGOXIN 125MCG TABLET PO NR (15:19)
[2024-07-20] MEDS: ENOXAPARIN 150MG/ML SYR SUBCUT SCH (17:34)
[2024-07-20] MEDS: AMIODARONE 150MG/100ML D5W 100 ML IV NR (17:38)
[2024-07-20] MEDS: CEFEPIME 2GM/50ML DUPLEX 50 ML IV SCH (20:32)
[2024-07-21] VITALS (99 sets, daily range): BP systolic 64–158; BP diastolic 27–132; PULSE 99–128; RESP 10–32; TEMP 37.2–37.8; O2SAT 88–100
[2024-07-21 00:18] LABS: CLARITY URINE CLEAR (CLEAR); COLOR URINE YELLOW (YELLOW); GLUCOSE URINE 3+ (NEGATIVE); KETONES URINE NEGATIVE (NEGATIVE); LEUKOCYTE ESTERASE URINE NEGATIVE (NEGATIVE); NITRITE URINE NEGATIVE (NEGATIVE); OCCULT BLOOD URINE NEGATIVE (NEGATIVE); PH URINE 5.5 (4.5-8.0); PROTEIN URINE 1+ (NEGATIVE); SPECIFIC GRAVITY URINE 1.016 (1.005-1.030); UROBILINOGEN URINE 0.2 E.U./dL (0.2-1.0)
[2024-07-21 01:00] LABS: SQUAMOUS EPITHELIAL CELL URINE FEW /lpf (RARE/1+)
[2024-07-21 01:01] LABS: AMORPHOUS SEDIMENT URINE 1+ /lpf; BACTERIA URINE NONE SEEN; RBC URINE 0-2 /hpf (0-2); WBC URINE 0-2 /hpf (0-2)
[2024-07-21 06:20] LABS: HEMATOCRIT. 32.1 % (42.0-52.0); HEMOGLOBIN. 10.7 g/dL (14.0-18.0); MEAN CORPUSCULAR HGB CONC 33.4 g/dL (31.0-37.0); MEAN CORPUSCULAR VOLUME 89.8 fL (80.0-94.0); MEAN PLATELET VOLUME 10.6 fl (7.4-10.4); PLATELET 108 x1000/uL (130-400); RED BLOOD CELL COUNT 3.58 mill/uL (4.7-6.1); RED CELL DISTRIBUTION WIDTH 15.6 % (11.6-14.6)
[2024-07-21 06:35] LABS: POTASSIUM 4.3 mEq/L (3.5-5.1)
[2024-07-21 06:36] LABS: CALCIUM 8.1 mg/dL (8.7-10.4)
[2024-07-21 06:46] LABS: DIFFERENTIAL COMMENT 1
[2024-07-21 07:16] LABS: CREATININE 1.5 mg/dL (0.6-1.3)
[2024-07-21 09:11] LABS: ANISOCYTOSIS 1+; PLATELET ESTIMATE SLIGHTLY DECREASED
[2024-07-21] MEDS: MIDODRINE HCL 5MG TABLET PO SCH (10:33)
[2024-07-21] MEDS: AMIODARONE 200MG TABLET PO SCH (10:33)
[2024-07-21] MEDS: VANCOMYCIN 1.5GM/250ML IV SCH (22:11)
[2024-07-22] VITALS (83 sets, daily range): BP systolic 74–133; BP diastolic 39–100; PULSE 97–127; RESP 14–40; TEMP 36.9–37.7; O2SAT 90–100
[2024-07-22] MEDS: HYDROMORPHONE HCL/PF 1MG/ML INJ IV PRN (04:07)
[2024-07-22 05:21] LABS: HEMATOCRIT. 29.5 % (42.0-52.0); HEMOGLOBIN. 10.3 g/dL (14.0-18.0); MEAN CORPUSCULAR HEMOGLOBIN 30.6 pg (28.0-32.0); MEAN CORPUSCULAR VOLUME 87.6 fL (80.0-94.0); PLATELET 95 x1000/uL (130-400); RED BLOOD CELL COUNT 3.37 mill/uL (4.7-6.1); RED CELL DISTRIBUTION WIDTH 14.9 % (11.6-14.6); WHITE BLOOD COUNT 8.5 x1000/uL (4.5-11.0)
[2024-07-22 05:39] LABS: CARBON DIOXIDE 27 mEq/L (21-32); CHLORIDE 108 mEq/L (98-107); POTASSIUM 3.4 mEq/L (3.5-5.1); SODIUM 142 mEq/L (136-145)
[2024-07-22 05:40] LABS: CALCIUM 7.9 mg/dL (8.7-10.4)
[2024-07-22 05:45] LABS: CREATININE 1.1 mg/dL (0.6-1.3); GLUCOSE 164 mg/dL (70-105); UREA NITROGEN BLOOD 33 mg/dL (9-23)
[2024-07-22 06:01] LABS: DIFFERENTIAL COMMENT 1
[2024-07-22] MEDS: MIDODRINE HCL 5MG TABLET PO SCH (08:59)
[2024-07-22] MEDS: POTASSIUM CHLORIDE 20MEQ/PACKET PO NR (08:59)
[2024-07-22] MEDS: AMIODARONE 200MG TABLET PO SCH (09:35)
[2024-07-22 18:11] LABS: PLATELET ESTIMATE DECREASED
[2024-07-23] VITALS (20 sets, daily range): BP systolic 94–123; BP diastolic 47–70; PULSE 80–108; RESP 14–26; TEMP 36.5–37.4; O2SAT 93–100
[2024-07-23 07:40] LABS: HEMATOCRIT. 30.6 % (42.0-52.0); HEMOGLOBIN. 10.2 g/dL (14.0-18.0); MEAN CORPUSCULAR HEMOGLOBIN 28.9 pg (28.0-32.0); MEAN CORPUSCULAR HGB CONC 33.2 g/dL (31.0-37.0); MEAN CORPUSCULAR VOLUME 87.2 fL (80.0-94.0); MEAN PLATELET VOLUME 10.3 fl (7.4-10.4); PLATELET 119 x1000/uL (130-400); RED BLOOD CELL COUNT 3.51 mill/uL (4.7-6.1); RED CELL DISTRIBUTION WIDTH 15.2 % (11.6-14.6); WHITE BLOOD COUNT 9.3 x1000/uL (4.5-11.0)
[2024-07-23 07:49] LABS: CHLORIDE 105 mEq/L (98-107); POTASSIUM 3.4 mEq/L (3.5-5.1); SODIUM 139 mEq/L (136-145)
[2024-07-23 07:50] LABS: CARBON DIOXIDE 26 mEq/L (21-32)
[2024-07-23 07:55] LABS: CREATININE 0.8 mg/dL (0.6-1.3); GLUCOSE 158 mg/dL (70-105); UREA NITROGEN BLOOD 25 mg/dL (9-23)
[2024-07-23 07:57] LABS: ALANINE AMINOTRANSFERASE 25 IU/L (10-49); ALBUMIN 2.5 g/dL (3.2-4.8); ASPARTATE AMINOTRANSFERASE 31 IU/L (<34); BILIRUBIN TOTAL 0.4 mg/dL (0.1-1.0); PROTEIN TOTAL 5.7 g/dL (6.0-8.3)
[2024-07-23 08:02] LABS: DIFFERENTIAL COMMENT 1
[2024-07-23] MEDS: POTASSIUM CHLORIDE 20MEQ/PACKET PO NR (13:28)
[2024-07-23 14:50] LABS: ANISOCYTOSIS 1+; PLATELET ESTIMATE SLIGHTLY DECREASED
[2024-07-24] VITALS (8 sets, daily range): BP systolic 107–136; BP diastolic 53–77; PULSE 84–97; RESP 18–20; TEMP 35.9–37.2; O2SAT 93–100
[2024-07-24 07:20] LABS: HEMATOCRIT. 29.7 % (42.0-52.0); HEMOGLOBIN. 10.1 g/dL (14.0-18.0); MEAN CORPUSCULAR HEMOGLOBIN 29.6 pg (28.0-32.0); MEAN CORPUSCULAR HGB CONC 34.1 g/dL (31.0-37.0); MEAN PLATELET VOLUME 10.6 fl (7.4-10.4); PLATELET 166 x1000/uL (130-400); RED BLOOD CELL COUNT 3.41 mill/uL (4.7-6.1); WHITE BLOOD COUNT 9.6 x1000/uL (4.5-11.0)
[2024-07-24 07:40] LABS: CHLORIDE 104 mEq/L (98-107); POTASSIUM 3.4 mEq/L (3.5-5.1); SODIUM 138 mEq/L (136-145)
[2024-07-24 07:41] LABS: CARBON DIOXIDE 26 mEq/L (21-32)
[2024-07-24 07:42] LABS: CALCIUM 7.8 mg/dL (8.7-10.4)
[2024-07-24 07:46] LABS: CREATININE 0.9 mg/dL (0.6-1.3); GLUCOSE 178 mg/dL (70-105)
[2024-07-24 07:47] LABS: UREA NITROGEN BLOOD 21 mg/dL (9-23)
[2024-07-24 08:14] LABS: DIFFERENTIAL COMMENT 1
[2024-07-24] MEDS: POTASSIUM CHLORIDE 10MEQ TABLET SR PO NR (09:14)
[2024-07-24] MEDS: POTASSIUM CHLORIDE 20MEQ TABLET SR PO NR (11:45)
[2024-07-24 14:31] LABS: ANISOCYTOSIS 1+; PLATELET ESTIMATE NORMAL
[2024-07-25] VITALS: BP 132/73; PULSE 93; RESP 21; TEMP 36.6; O2SAT 99
[2024-07-25 04:00] VITALS: BP 123/66; PULSE 93; RESP 21; TEMP 37.2; O2SAT 95
[2024-07-25 07:17] LABS: HEMOGLOBIN. 11.1 g/dL (14.0-18.0); MEAN CORPUSCULAR HEMOGLOBIN 29.9 pg (28.0-32.0); MEAN CORPUSCULAR HGB CONC 33.5 g/dL (31.0-37.0); MEAN CORPUSCULAR VOLUME 89.1 fL (80.0-94.0); PLATELET 280 x1000/uL (130-400); RED CELL DISTRIBUTION WIDTH 15.2 % (11.6-14.6); WHITE BLOOD COUNT 9.5 x1000/uL (4.5-11.0)
[2024-07-25 07:21] LABS: CALCIUM 8.3 mg/dL (8.7-10.4); CARBON DIOXIDE 29 mEq/L (21-32); CHLORIDE 102 mEq/L (98-107); POTASSIUM 3.3 mEq/L (3.5-5.1); SODIUM 138 mEq/L (136-145)
[2024-07-25 07:27] LABS: CREATININE 1.1 mg/dL (0.6-1.3); GLUCOSE 187 mg/dL (70-105); UREA NITROGEN BLOOD 19 mg/dL (9-23)
[2024-07-25 08:00] VITALS: BP 127/58; PULSE 94; RESP 20; TEMP 37.1; O2SAT 100
[2024-07-25] MEDS ORDERED: NALOXONE HCL 0.4MG/ML VIAL IV PRN (08:00)
[2024-07-25 08:07] LABS: DIFFERENTIAL COMMENT 1
[2024-07-25] MEDS: PANTOPRAZOLE 40MG DR TABLET PO SCH (08:27)
[2024-07-25] MEDS: POTASSIUM CHLORIDE 20MEQ TABLET SR PO NR (08:36)
[2024-07-25 12:00] VITALS: BP 125/54; PULSE 96; RESP 18; TEMP 37.1; O2SAT 100
[2024-07-25 13:37] LABS: ANISOCYTOSIS 1+; PLATELET ESTIMATE NORMAL
[2024-07-25 16:00] VITALS: BP 127/57; PULSE 94; RESP 20; TEMP 36.3; O2SAT 95
[2024-07-25 20:00] VITALS: BP 138/60; PULSE 94; RESP 20; TEMP 36.7; O2SAT 98
[2024-07-26] VITALS: BP 133/69; PULSE 91; RESP 18; TEMP 36.6; O2SAT 97
[2024-07-26 04:00] VITALS: BP 118/71; PULSE 92; RESP 18; TEMP 36.8; O2SAT 98
[2024-07-26 06:37] LABS: CARBON DIOXIDE 28 mEq/L (21-32); CHLORIDE 102 mEq/L (98-107); POTASSIUM 3.1 mEq/L (3.5-5.1); SODIUM 139 mEq/L (136-145)
[2024-07-26 06:43] LABS: GLUCOSE 159 mg/dL (70-105); UREA NITROGEN BLOOD 18 mg/dL (9-23)
[2024-07-26 08:00] VITALS: BP 120/62; PULSE 94; RESP 20; TEMP 36.5; O2SAT 100
[2024-07-26] MEDS: POTASSIUM CHLORIDE 20MEQ TABLET SR PO NR (08:37)
[2024-07-26 12:00] VITALS: BP 124/67; PULSE 93; RESP 20; TEMP 36.6; O2SAT 100
[2024-07-26] MEDS: HYDROCODONE/ACETAMINOPHEN 5/325MG TABLET PO PRN (14:22)
[2024-07-26 16:00] VITALS: BP 105/67; PULSE 93; RESP 20; TEMP 36.1; O2SAT 99
[2024-07-26 20:00] VITALS: BP 121/57; PULSE 92; RESP 20; TEMP 36.3; O2SAT 98
[2024-07-27] VITALS: BP 131/56; PULSE 90; RESP 19; TEMP 36.3; O2SAT 96
[2024-07-27 04:00] VITALS: BP 114/60; PULSE 90; RESP 19; TEMP 36.1; O2SAT 97
[2024-07-27 08:00] VITALS: BP 115/58; PULSE 93; RESP 18; TEMP 36.1; O2SAT 100
[2024-07-27 12:00] VITALS: BP 110/57; PULSE 89; RESP 20; TEMP 36.4; O2SAT 99
[2024-07-27 12:31] LABS: CHLORIDE 104 mEq/L (98-107); POTASSIUM 3.1 mEq/L (3.5-5.1); SODIUM 140 mEq/L (136-145)
[2024-07-27 12:32] LABS: CARBON DIOXIDE 26 mEq/L (21-32)
[2024-07-27 12:37] LABS: CREATININE 0.9 mg/dL (0.6-1.3); GLUCOSE 140 mg/dL (70-105); UREA NITROGEN BLOOD 15 mg/dL (9-23)
[2024-07-27 12:52] LABS: BASOPHILS % 0.6 % (0.0-2.0); EOSINOPHILS % 0.5 % (0.0-5.0); HEMATOCRIT. 30.7 % (42.0-52.0); HEMOGLOBIN. 10.1 g/dL (14.0-18.0); MEAN CORPUSCULAR HEMOGLOBIN 28.9 pg (28.0-32.0); MEAN CORPUSCULAR HGB CONC 32.9 g/dL (31.0-37.0); MEAN CORPUSCULAR VOLUME 87.9 fL (80.0-94.0); MEAN PLATELET VOLUME 9.9 fl (7.4-10.4); MONOCYTES % 9.7 % (2.0-8.0); NEUTROPHILS % 80.2 % (40.0-76.0); PLATELET 395 x1000/uL (130-400); RED CELL DISTRIBUTION WIDTH 15.2 % (11.6-14.6); WHITE BLOOD COUNT 11.6 x1000/uL (4.5-11.0)
[2024-07-27 16:00] VITALS: BP 117/65; PULSE 99; RESP 20; TEMP 36.7; O2SAT 100
[2024-07-27 20:00] VITALS: BP 135/49; PULSE 94; RESP 20; TEMP 36.5; O2SAT 100
[2024-07-27] MEDS: POTASSIUM CHLORIDE 20MEQ/PACKET PO NR (20:12)
[2024-07-27] MEDS: SENNOSIDES/DOCUSATE SOD 8.6/50MG TABLET PO SCH (20:17)
[2024-07-28] VITALS: BP 140/56; PULSE 92; RESP 20; TEMP 36.6; O2SAT 99
[2024-07-28 04:00] VITALS: BP 143/64; PULSE 91; RESP 20; TEMP 36.5; O2SAT 100
[2024-07-28 08:20] VITALS: BP 105/53; PULSE 94; RESP 19; TEMP 36.3; O2SAT 90
[2024-07-28] MEDS: AMIODARONE 200MG TABLET PO SCH (09:57)
[2024-07-28 12:05] VITALS: BP 100/50; PULSE 91; RESP 20; TEMP 36.7; O2SAT 99
[2024-07-28] MEDS: KETOROLAC 15MG/ML VIAL IV PRN (14:08)
[2024-07-28 16:14] VITALS: BP 115/54; PULSE 94; RESP 20; TEMP 36.8; O2SAT 98
[2024-07-28] MEDS: EMPAGLIFLOZIN 10MG TABLET PO SCH (18:55)
[2024-07-28 19:40] LABS: BASOPHILS % 0.4 % (0.0-2.0); EOSINOPHILS % 0.4 % (0.0-5.0); HEMATOCRIT. 34.5 % (42.0-52.0); HEMOGLOBIN. 11.2 g/dL (14.0-18.0); LYMPHOCYTES % 9.3 % (20.0-50.0); MEAN CORPUSCULAR HEMOGLOBIN 29.2 pg (28.0-32.0); MEAN CORPUSCULAR HGB CONC 32.5 g/dL (31.0-37.0); MEAN CORPUSCULAR VOLUME 89.8 fL (80.0-94.0); MEAN PLATELET VOLUME 9.2 fl (7.4-10.4); NEUTROPHILS % 77.9 % (40.0-76.0); PLATELET 481 x1000/uL (130-400); RED BLOOD CELL COUNT 3.85 mill/uL (4.7-6.1); RED CELL DISTRIBUTION WIDTH 15.6 % (11.6-14.6); WHITE BLOOD COUNT 10.3 x1000/uL (4.5-11.0)
[2024-07-28 19:50] LABS: CHLORIDE 104 mEq/L (98-107); POTASSIUM 3.4 mEq/L (3.5-5.1); SODIUM 140 mEq/L (136-145)
[2024-07-28 19:51] LABS: CALCIUM 8.3 mg/dL (8.7-10.4); CARBON DIOXIDE 27 mEq/L (21-32)
[2024-07-28 19:57] LABS: GLUCOSE 70 mg/dL (70-105); UREA NITROGEN BLOOD 13 mg/dL (9-23)
[2024-07-28 20:00] VITALS: BP 142/56; PULSE 91; RESP 20; TEMP 36.2; O2SAT 98
[2024-07-29] VITALS: BP 122/61; PULSE 93; RESP 20; TEMP 36.2; O2SAT 100
[2024-07-29 04:00] VITALS: BP 109/58; PULSE 95; RESP 20; TEMP 36.4; O2SAT 100
[2024-07-29 08:27] VITALS: BP 123/62; PULSE 94; RESP 19; TEMP 36.6; O2SAT 97
[2024-07-29 12:11] VITALS: BP 134/66; PULSE 94; RESP 20; TEMP 36.9; O2SAT 98
[2024-07-29] MEDS ORDERED: SIMETHICONE 80MG TABLET CHEW PO PRN (12:30)
[2024-07-29 16:29] VITALS: BP 120/61; PULSE 94; RESP 18; TEMP 36.7; O2SAT 97
[2024-07-30] VITALS: BP 106/61; PULSE 86; RESP 20; TEMP 36.3; O2SAT 96
[2024-07-30 04:00] VITALS: BP 140/74; PULSE 91; RESP 18; TEMP 36.5; O2SAT 98
[2024-07-30 08:00] VITALS: BP 138/75; PULSE 94; RESP 20; TEMP 36.3; O2SAT 100
[2024-07-30 12:00] VITALS: BP 130/81; PULSE 89; RESP 20; TEMP 36.4; O2SAT 100
[2024-07-30 16:00] VITALS: BP 124/63; PULSE 87; RESP 18; TEMP 36.3; O2SAT 100
[2024-07-30 16:26] LABS: BASOPHILS % 0.6 % (0.0-2.0); EOSINOPHILS % 0.5 % (0.0-5.0); HEMATOCRIT. 29.4 % (42.0-52.0); HEMOGLOBIN. 9.7 g/dL (14.0-18.0); MEAN CORPUSCULAR HEMOGLOBIN 29.6 pg (28.0-32.0); MEAN CORPUSCULAR VOLUME 89.9 fL (80.0-94.0); MEAN PLATELET VOLUME 8.9 fl (7.4-10.4); MONOCYTES % 10.8 % (2.0-8.0); NEUTROPHILS % 79.1 % (40.0-76.0); PLATELET 494 x1000/uL (130-400); RED BLOOD CELL COUNT 3.27 mill/uL (4.7-6.1); RED CELL DISTRIBUTION WIDTH 14.9 % (11.6-14.6); WHITE BLOOD COUNT 8.3 x1000/uL (4.5-11.0)
[2024-07-30 16:33] LABS: CHLORIDE 104 mEq/L (98-107); POTASSIUM 2.9 mEq/L (3.5-5.1); SODIUM 138 mEq/L (136-145)
[2024-07-30 16:34] LABS: CARBON DIOXIDE 26 mEq/L (21-32)
[2024-07-30 16:39] LABS: GLUCOSE 111 mg/dL (70-105); UREA NITROGEN BLOOD 15 mg/dL (9-23)
[2024-07-30 20:00] VITALS: BP 128/58; PULSE 86; RESP 20; TEMP 36.3; O2SAT 97
[2024-07-30] MEDS: POTASSIUM CHLORIDE 20MEQ/PACKET PO NR (20:24)
[2024-07-30] MEDS ORDERED: NALOXONE HCL 0.4MG/ML VIAL IV PRN (22:00)
[2024-07-30] MEDS: KCL 20MEQ/100ML PREMIX 100 ML IV SCH (22:23)
[2024-07-31] VITALS: BP 116/68; PULSE 87; RESP 19; TEMP 36.5; O2SAT 98
[2024-07-31 04:00] VITALS: BP 144/66; PULSE 90; RESP 19; TEMP 36.2; O2SAT 100
[2024-07-31 08:00] VITALS: BP_SYST 153; BP_SYST 159; BP_DIAS 63; BP_DIAS 69; PULSE 83; PULSE 88; RESP 17; RESP 19; TEMP 36.4; O2SAT 96; O2SAT 99
[2024-07-31 12:00] VITALS: BP 143/73; PULSE 88; RESP 19; TEMP 36.6; O2SAT 97
[2024-07-31 16:00] VITALS: BP 146/80; PULSE 87; RESP 19; TEMP 36.7; O2SAT 97
[2024-07-31 20:00] VITALS: BP 147/68; PULSE 85; RESP 21; TEMP 37; O2SAT 97
[2024-07-31 22:34] LABS: BASOPHILS % 0.5 % (0.0-2.0); EOSINOPHILS % 0.5 % (0.0-5.0); HEMATOCRIT. 32.1 % (42.0-52.0); HEMOGLOBIN. 10.5 g/dL (14.0-18.0); LYMPHOCYTES % 10.6 % (20.0-50.0); MEAN CORPUSCULAR HEMOGLOBIN 29.7 pg (28.0-32.0); MEAN CORPUSCULAR HGB CONC 32.9 g/dL (31.0-37.0); MEAN CORPUSCULAR VOLUME 90.4 fL (80.0-94.0); MONOCYTES % 12.1 % (2.0-8.0); NEUTROPHILS % 76.3 % (40.0-76.0); PLATELET 520 x1000/uL (130-400); RED BLOOD CELL COUNT 3.55 mill/uL (4.7-6.1); RED CELL DISTRIBUTION WIDTH 14.6 % (11.6-14.6); WHITE BLOOD COUNT 7.6 x1000/uL (4.5-11.0)
[2024-07-31 22:49] LABS: CHLORIDE 104 mEq/L (98-107); SODIUM 139 mEq/L (136-145)
[2024-07-31 22:50] LABS: CARBON DIOXIDE 26 mEq/L (21-32)
[2024-07-31 22:51] LABS: CALCIUM 7.9 mg/dL (8.7-10.4)
[2024-07-31 22:55] LABS: CREATININE 0.9 mg/dL (0.6-1.3); GLUCOSE 113 mg/dL (70-105)
[2024-07-31 22:56] LABS: UREA NITROGEN BLOOD 12 mg/dL (9-23)
[2024-07-31 22:57] LABS: ALANINE AMINOTRANSFERASE 16 IU/L (10-49); ALBUMIN 2.8 g/dL (3.2-4.8); ASPARTATE AMINOTRANSFERASE 20 IU/L (<34)
[2024-07-31 22:58] LABS: BILIRUBIN TOTAL 0.5 mg/dL (0.1-1.0); PROTEIN TOTAL 7.4 g/dL (6.0-8.3)
[2024-07-31 23:02] LABS: POTASSIUM 2.8 mEq/L (3.5-5.1)
[2024-07-31] MEDS: POTASSIUM CHLORIDE 20MEQ/PACKET PO NR (23:56)
[2024-08-01] VITALS (7 sets, daily range): BP systolic 139–156; BP diastolic 63–75; PULSE 82–91; RESP 18–20; TEMP 36.4–36.8; O2SAT 95–98
[2024-08-01] MEDS: MAGNESIUM 2 G PREMIX 50 ML IV NR (01:15)
[2024-08-01] MEDS ORDERED: EMPA10TA PO (09:11)
[2024-08-01] MEDS ORDERED: MIDO5TAB4 PO (09:11)
[2024-08-01] MEDS ORDERED: AMI2 PO (09:11)
[2024-08-01] MEDS ORDERED: LIP40 PO (09:11)
[2024-08-01 15:37] LABS: CHLORIDE 106 mEq/L (98-107); SODIUM 140 mEq/L (136-145)
[2024-08-01 15:38] LABS: CARBON DIOXIDE 26 mEq/L (21-32)
[2024-08-01 15:43] LABS: CREATININE 0.9 mg/dL (0.6-1.3); GLUCOSE 184 mg/dL (70-105); UREA NITROGEN BLOOD 10 mg/dL (9-23)
[2024-08-02] VITALS: BP 136/59; PULSE 84; RESP 20; TEMP 37.2; O2SAT 97
[2024-08-02 04:00] VITALS: BP 115/67; PULSE 82; RESP 18; TEMP 37.2; O2SAT 97
[2024-08-02 08:07] VITALS: BP 156/74; PULSE 88; RESP 18; TEMP 36.9; O2SAT 97
[2024-08-02 11:41] VITALS: BP 136/73; PULSE 88; RESP 20; TEMP 36.7; O2SAT 98
[2024-08-02] MEDS ORDERED: POTASSIUM CHLORIDE 20MEQ/PACKET PO NR (13:45)
[2024-08-02 16:04] VITALS: BP 141/63; PULSE 89; RESP 18; TEMP 36.6; O2SAT 96
== END 2024-08-02 18:40 | disposition home health service (06) | DRG 720 ==
LOC: ER 18:29 → EDBEDREQ 19:11 → MICUSO 22:22 → EDBEDREQSVC 22:25 → EDBEDREQ 22:25 → EDBEDREQTM 22:25 → 7WST 07-23 12:06
PROVIDERS: ADMIT Internal Medicine; ATTEND Internal Medicine
PROC: 02HV33Z Insertion of Infusion Device into Superior Vena Cava, Percutaneous Approach (ICD-10-PCS; principal; 2024-07-19)
PROC: 5A09357 Assistance with Respiratory Ventilation, Less than 24 Consecutive Hours, Continuous Positive Airway Pressure (ICD-10-PCS; 2024-07-19)
PROC: 5A09357 Assistance with Respiratory Ventilation, Less than 24 Consecutive Hours, Continuous Positive Airway Pressure (ICD-10-PCS; 2024-07-20)
PROC: 5A09357 Assistance with Respiratory Ventilation, Less than 24 Consecutive Hours, Continuous Positive Airway Pressure (ICD-10-PCS; 2024-07-21)
PROC: 5A09357 Assistance with Respiratory Ventilation, Less than 24 Consecutive Hours, Continuous Positive Airway Pressure (ICD-10-PCS; 2024-07-22)
PROC: 5A09357 Assistance with Respiratory Ventilation, Less than 24 Consecutive Hours, Continuous Positive Airway Pressure (ICD-10-PCS; 2024-07-23)
DX: A41.9 Sepsis, unspecified organism (principal); J96.01 Acute respiratory failure with hypoxia; R65.21 Severe sepsis with septic shock; E11.10 Type 2 diabetes mellitus with ketoacidosis without coma; I50.9 Heart failure, unspecified; I13.0 Hypertensive heart and chronic kidney disease with heart failure and stage 1 through stage 4 chronic kidney disease, or unspecified chronic kidney disease; D63.1 Anemia in chronic kidney disease; E66.2 Morbid (severe) obesity with alveolar hypoventilation; E83.39 Other disorders of phosphorus metabolism; I48.92 Unspecified atrial flutter; E11.22 Type 2 diabetes mellitus with diabetic chronic kidney disease; Z20.822 Contact with and (suspected) exposure to COVID-19; L03.116 Cellulitis of left lower limb; N17.9 Acute kidney failure, unspecified; D53.9 Nutritional anemia, unspecified; I87.8 Other specified disorders of veins; J96.02 Acute respiratory failure with hypercapnia; E11.51 Type 2 diabetes mellitus with diabetic peripheral angiopathy without gangrene; L03.115 Cellulitis of right lower limb; I48.0 Paroxysmal atrial fibrillation; K59.09 Other constipation; N18.30 Chronic kidney disease, stage 3 unspecified; Z68.44 Body mass index [BMI] 60.0-69.9, adult; I25.10 Atherosclerotic heart disease of native coronary artery without angina pectoris; Z91.148 Patient's other noncompliance with medication regimen for other reason; Z79.4 Long term (current) use of insulin; L89.899 Pressure ulcer of other site, unspecified stage; Z79.01 Long term (current) use of anticoagulants; Z79.84 Long term (current) use of oral hypoglycemic drugs; Z79.899 Other long term (current) drug therapy; Z82.49 Family history of ischemic heart disease and other diseases of the circulatory system; Z83.3 Family history of diabetes mellitus; Z91.199 Patient's noncompliance with other medical treatment and regimen due to unspecified reason
CPT/HCPCS: 36415; 36573; 36600; 71045; 76700; 76770; 76857; 78580; 80048; 80051; 80053; 80061; 80076; 80202; 81003; 82010; 82306; 82375; 82550; 82553; 82607; 82728; 82747; 82805; 82962; 83036; 83520; 83540; 83550; 83605; 83735; 83880; 83930; 84100; 84145; 84439; 84443; 84484; 85014; 85025; 85379; 85651; 86705; 86709; 87340; 87426; 87804; 93005; 93306; 93923; 93970; 94070; 94640; 94660; 94664; 97110; 97163; 97166; 98960; 99291; A4606; C1725; J0282; J0692; J0696; J1171; J1650; J1815; J1885; J1940; J2003; J2270; J2470; J3370; J3475; J3480; J3490; J7030; J7042; J7060; J7120; J7626